=== PATIENT | male | born 1985 | race Caucasian/White ===

== ENCOUNTER 2018-02-14 19:46 | Inpatient (IN) ==
[2018-02-14] MEDS ORDERED: Sod Chloride 0.9% Inj 1,000 ML IV.SIG ONE (21:34)
[2018-02-14 21:55] LABS: Hematocrit 27.8 % (39.0-51.0); Mean Corpuscular HGB Conc 35.9 % (32.0-36.0); Mean Corpuscular Volume 108.6 fL (80.0-100.0); Mean Platelet Volume 8.1 fL (7.0-11.0); Platelet Count 134 th/mm3 (150-450); Red Blood Count 2.56 mil/mm3 (4.50-5.90); Red Cell Distribution Width 16.9 % (11.6-17.2); White Blood Count 12.6 th/mm3 (4.0-11.0)
--- NOTE | 2018-02-14 21:55 | ED ---
HPI General Chief Complaint: Abdominal Pain Stated Complaint: states pancreatis Time Seen by Provider: 02/14/18 21:33 Source: patient Mode of arrival: ambulatory Limitations: no limitations History of Present Illness HPI narrative: Patient is 32-year-old male presenting to the emerge department for evaluation of abdominal pain, nausea. Patient states that he was diagnosed with cirrhosis 3 years ago. He reports that he has been in and out of [facility] over the last 2-3 weeks. He states that he is no longer drinking alcohol but used to drink up to 6 beers a day. He states for the last 24 hours he has increased yellowing of his skin and eyes. He denies any fevers, chills, chest pain, shortness of breath. He states that when he does not have a bowel movement the fecal matter gets absorbed into his bloodstream. Patient reports numbness in his extremities. He states that he presented to [facility] because his gravity meter observer told him to get a second opinion here. He was followed by Dr. Winter GI at [facility]. MD complaint: Reports abdominal pain Onset (ago): month(s) Pain Consistency: constant Location: Reports diffuse Severity: moderate Severity scale (1-10): 7 Quality: Reports aching and fullness Migration to: Reports no migration Relieving factors: nothing Exacerbating factors: eating Context: Reports history of similar episodes Associated symptoms: Reports nausea and other Related Data Home Medications Medication Instructions Recorded Confirmed clonidine HCl 0.1 mg PO BID 02/14/18 02/14/18 magnesium 500 mg PO DAILY 02/14/18 02/14/18 phytonadione (vitamin K1) [vitamin 0 mg PO DAILY 02/14/18 02/14/18 K] Allergies Allergy/AdvReac Type Severity Reaction Status Date / Time No Known Allergies Allergy Verified 02/14/18 21:08 Review of Systems ROS: all other systems reviewed are negative [facility] Medical History Medical History Cirrhosis (Acute) Pancreatitis (Acute) Surgical History Surgical History History of esophagogastroduodenoscopy (EGD) (Acute) Family History Family History Father Healthy adult male Mother Healthy female adult Social History Social History Substance History: Past History Second Hand Smoke Exposure: No Smoking Status: Never smoker How Often Do You Have a Drink Containing Alcohol: Never Recent Travel in [facility] within the Last 8 Weeks: No Recent Out of Country Travel within the Last 8 Weeks: No Immunization History Tetanus Immunization: Unsure Exam Narrative Exam Narrative: GENERAL: Thin, well-developed, well-nourished, alert male. Presenting in no acute distress. SKIN: Focused skin assessment warm/dry. Jaundiced HEAD: Atraumatic. Normocephalic. EYES: Pupils equal and round. No injection or drainage. Positive scleral icterus ENT: No nasal bleeding or discharge. Mucous membranes pink and moist. NECK: Trachea midline. No JVD. CARDIOVASCULAR: Regular rate and rhythm. No murmur appreciated. RESPIRATORY: No accessory muscle use. Clear to auscultation. Breath sounds equal bilaterally. GASTROINTESTINAL: Abdomen soft, non-tender, nondistended. Hepatic and splenic margins not palpable. MUSCULOSKELETAL: No obvious deformities. No clubbing. No cyanosis. No edema. NEUROLOGICAL: Awake and alert. No obvious cranial nerve deficits. Motor grossly within normal limits. Normal speech. PSYCHIATRIC: Appropriate mood and affect; insight and judgment normal. Course Initial Documented Vital Signs Temperature 98.2 F 02/14/18 21:08 Pulse Rate 70 02/14/18 21:08 Respiratory Rate 23 02/14/18 21:08 Blood Pressure 113/57 L 02/14/18 21:08 Pulse Oximetry 98 02/14/18 21:08 Last Documented Vital Signs Temperature 98.3 F 02/16/18 14:47 Pulse Rate 83 02/16/18 14:47 Respiratory Rate 12 02/16/18 14:47 Blood Pressure 127/59 L 02/16/18 14:47 Pulse Oximetry 96 02/16/18 14:47 Medical Decision Making KATHLEEN Attestation KATHLEEN supervised visit: Yes Attestation: I, Dr. Beck, have reviewed the advance practice practitioner's documentation and am in agreement, met with the patient face to face, made the diagnosis, and the medical decision making was done by me. *My assessment and Findings: This is a 32-year-old patient who has a history of alcoholic cirrhosis who presents with abdominal pain and swelling as well as difficulty breathing. On exam, he is yellow. His abdomen is bloated compatible with ascites. He has epigastric tenderness. He is cachectic and chronically ill-appearing. Please see Kristine Priyank, SKIN FORMER's note for a more detailed H&P, final diagnosis and disposition MDM Narrative Medical decision making narrative: Patient is a chronically ill 32-year-old male presenting to emerge department for evaluation of jaundice and abdominal pain and nausea. Patient's vital signs are stable. Medical records requested from [facility]. Labs and imaging ordered and pending. CBC with a white blood cell count 12.6, hemoglobin is improved when compared to medical records, previous hemoglobin was 8.4. Patient does have bandemia, this is also improved when compared to prior on 02/02. The value at that time was 17. Potassium is 5.3. Ammonia level is elevated. Lipase is elevated >1700. Pt will be admitted for IVF and pain control, discussed with Dr. Gonzalez who accepted admit. Pt aware of findings and plan of care. Medical Screen Exam Complete: Yes Emergency Medical Condition: Yes Differential Diagnosis Differential Diagnosis: Cholecystitis versus pancreatitis versus metabolic abnormality versus liver failure versus obstruction versus other Medical Records Medical records reviewed: Yes I reviewed the patient's medical records. Medical records reviewed from [facility]. On 01/[address] scan of the abdomen and pelvis was performed that shows chronic hepatocellular disease. Increased splenic venous collaterals and distal esophageal varices demonstrating satisfactory enhancement. Increased moderate diffuse nonspecific mesenteric edema with small to moderate amount of free intraperitoneal fluid of the abdomen and pelvis. This is greatest within the pelvis. Also shows new diffuse moderate nonspecific wall thickening throughout the colon which could be related to colitis or edema. Diffuse heterogeneous enhancement of the liver with prevents exclusion of hepatic masses, with this patient increased risk of hepatocellular carcinoma due to chronic hepatocellular disease. Gallbladder not distended at least 14.4 cm in length and 6.0 cm in transverse diameter with moderate diffuse nonspecific wall thickening for which clinical correlation to exclude cystitis no bowel obstruction or ileus. Normal appendix. Hemoglobin was 8.4. Patient was placed on CIWA protocol during his admissions. Lab Data Lab results reviewed: Yes I reviewed the patient's lab results. Result diagrams: 02/16/18 05:24 02/16/18 05:24 Lab Results 02/14/18 02/14/18 02/14/18 Range/Units 21:40 21:40 22:00 WBC 12.6 H (4.0-11.0) th/mm3 RBC 2.56 L (4.50-5.90) mil/mm3 Hgb 10.0 L (13.0-17.0) gm/dL Hct 27.8 L (39.0-51.0) % MCV 108.6 H (80.0-100.0) fL MCH 39.0 H (27.0-34.0) pg MCHC 35.9 (32.0-36.0) % RDW 16.9 (11.6-17.2) % Plt Count 134 L (150-450) th/mm3 MPV 8.1 (7.0-11.0) fL Prelim Diff (Auto) Manual diff required Neut % (Auto) (16.0-70.0) % Lymph % (Auto) (9.0-44.0) % [place] % (Auto) (0.0-8.0) % Eos % (Auto) (0.0-4.0) % Baso % (Auto) (0.0-2.0) % Neut # (Auto) (1.8-7.7) th/mm3 Lymph # (Auto) (1.0-4.8) th/mm3 [place] # (Auto) (0.0-0.9) th/mm3 Eos # (Auto) (0.0-0.4) th/mm3 Baso # (Auto) (0.0-0.2) th/mm3 WBC Differential Manual diff final Seg Neuts % (Manual) 67 (16-70) % Band Neuts % (Manual) 13 H (0-6) % Lymphocytes % (Manual) 8 L (9-44) % Monocytes % (Manual) 4 (0-8) % Eosinophils % (Manual) 1 (0-4) % Basophils % (Manual) 3 H (0-2) % Myelocytes % (Man) 4 H (0-0) % Abs Neuts (Manual) 10.6 H (1.8-7.7) th/mm3 Differential Comment . Platelet Estimate Low L (Normal) Platelet Morphology Normal (Normal) Basophilic Stippling (None) Saline Cells 1+ H (None) Acanthocytes (Spur) Occ H (None) Keratocytes Occ H (None) PT (9.8-11.6) sec INR Ratio APTT (24.3-30.1) sec Fibrinogen (227-377) mg/dL Sodium 134 L (136-145) meq/L Potassium 5.3 H (3.5-5.1) meq/L Chloride 103 (98-107) meq/L Carbon Dioxide 25.8 (21.0-32.0) meq/L Anion Gap 5 (5-15) meq/L BUN 12 (7-18) mg/dL Creatinine 0.96 (0.60-1.30) mg/dL Estimated GFR Greater than 89 (>89) mL/min Random Glucose 111 H (74-106) mg/dL Calcium 7.8 L (8.5-10.1) mg/dL Magnesium 2.0 (1.5-2.5) mg/dL Total Bilirubin 23.0 H (0.2-1.0) mg/dL AST 144 H (15-37) U/L ALT 60 (12-78) U/L Alkaline Phosphatase 162 H (45-117) U/L Ammonia 47 H (11-32) mcmol/L Total Creatine Kinase 71 (39-308) U/L Troponin I Less than 0.02 L (0.02-0.05) ng/mL Total Protein 7.0 (6.4-8.2) g/dL Albumin 1.8 L (3.4-5.0) g/dL Lipase 1764 H (73-393) U/L Vitamin B12 (193-986) pg/mL Folate (3.1-17.5) ng/mL Urine Color (Yellw/Straw) Urine Clarity (Clear) Urine pH (5.0-8.5) Ur Specific [place] (1.002-1.035) Urine Protein (Neg-Trace) mg/dL Urine Glucose (UA) (Negative) mg/dL Urine Ketones (Negative) mg/dL Urine Occult Blood (Negative) Urine Nitrate (Negative) Urine Bilirubin (Negative) Urine Ictotest (Negative) Urine Urobilinogen (Less than 2) mg/dL Ur Leukocyte Esterase (Negative) Urine RBC (0-3) /hpf Urine WBC (0-5) /hpf Hyaline Casts (0-3) /lpf Granular Casts (None) /lpf Urine Mucus (Occasional) /lpf Micro UA Comment Ur Microscopic Review Urine Culture Comments 02/15/18 02/15/18 02/15/18 Range/Units 02:15 09:07 21:20 WBC (4.0-11.0) th/mm3 RBC (4.50-5.90) mil/mm3 Hgb (13.0-17.0) gm/dL Hct (39.0-51.0) % MCV (80.0-100.0) fL MCH (27.0-34.0) pg MCHC (32.0-36.0) % RDW (11.6-17.2) % Plt Count (150-450) th/mm3 MPV (7.0-11.0) fL Prelim Diff (Auto) Neut % (Auto) (16.0-70.0) % Lymph % (Auto) (9.0-44.0) % [place] % (Auto) (0.0-8.0) % Eos % (Auto) (0.0-4.0) % Baso % (Auto) (0.0-2.0) % Neut # (Auto) (1.8-7.7) th/mm3 Lymph # (Auto) (1.0-4.8) th/mm3 [place] # (Auto) (0.0-0.9) th/mm3 Eos # (Auto) (0.0-0.4) th/mm3 Baso # (Auto) (0.0-0.2) th/mm3 WBC Differential Seg Neuts % (Manual) (16-70) % Band Neuts % (Manual) (0-6) % Lymphocytes % (Manual) (9-44) % Monocytes % (Manual) (0-8) % Eosinophils % (Manual) (0-4) % Basophils % (Manual) (0-2) % Myelocytes % (Man) (0-0) % Abs Neuts (Manual) (1.8-7.7) th/mm3 Differential Comment Platelet Estimate (Normal) Platelet Morphology (Normal) Basophilic Stippling (None) Bin Cells (None) Acanthocytes (Spur) (None) Keratocytes (None) PT 26.8 H 26.8 H (9.8-11.6) sec INR 2.7 2.7 Ratio APTT 43.6 H (24.3-30.1) sec Fibrinogen 144 L (227-377) mg/dL Sodium (136-145) meq/L Potassium (3.5-5.1) meq/L Chloride (98-107) meq/L Carbon Dioxide (21.0-32.0) meq/L Anion Gap (5-15) meq/L BUN (7-18) mg/dL Creatinine (0.60-1.30) mg/dL Estimated GFR (>89) mL/min Random Glucose (74-106) mg/dL Calcium (8.5-10.1) mg/dL Magnesium (1.5-2.5) mg/dL Total Bilirubin (0.2-1.0) mg/dL AST (15-37) U/L ALT (12-78) U/L Alkaline Phosphatase (45-117) U/L Ammonia (11-32) mcmol/L Total Creatine Kinase (39-308) U/L Troponin I (0.02-0.05) ng/mL Total Protein (6.4-8.2) g/dL Albumin (3.4-5.0) g/dL Lipase (73-393) U/L Vitamin B12 (193-986) pg/mL Folate (3.1-17.5) ng/mL Urine Color Lindsey (Yellw/Straw) Urine Clarity Hazy H (Clear) Urine pH 6.0 (5.0-8.5) Ur Specific [place] 1.031 (1.002-1.035) Urine Protein Negative (Neg-Trace) mg/dL Urine Glucose (UA) Negative (Negative) mg/dL Urine Ketones Negative (Negative) mg/dL Urine Occult Blood Negative (Negative) Urine Nitrate Negative (Negative) Urine Bilirubin Small H (Negative) Urine Ictotest Positive H (Negative) Urine Urobilinogen 4 or greater (Less than 2) mg/dL Ur Leukocyte Esterase Negative (Negative) Urine RBC 1 (0-3) /hpf Urine WBC 2 (0-5) /hpf Hyaline Casts 1 (0-3) /lpf Granular Casts 3 (None) /lpf Urine Mucus Few H (Occasional) /lpf Micro UA Comment Culture not ind Ur Microscopic Review Not Reportable Urine Culture Comments Culture not ind 02/15/18 02/16/18 02/16/18 Range/Units 21:20 05:24 05:24 WBC 12.6 H (4.0-11.0) th/mm3 RBC 2.30 L (4.50-5.90) mil/mm3 Hgb 9.1 L (13.0-17.0) gm/dL Hct 24.9 L (39.0-51.0) % MCV 108.3 H (80.0-100.0) fL MCH 39.6 H (27.0-34.0) pg MCHC 36.5 H (32.0-36.0) % RDW 16.5 (11.6-17.2) % Plt Count 145 L (150-450) th/mm3 MPV 7.9 (7.0-11.0) fL Prelim Diff (Auto) Slide review pending Neut % (Auto) 78.7 H (16.0-70.0) % Lymph % (Auto) 11.0 (9.0-44.0) % [place] % (Auto) 8.0 (0.0-8.0) % Eos % (Auto) 1.7 (0.0-4.0) % Baso % (Auto) 0.6 (0.0-2.0) % Neut # (Auto) 9.9 H (1.8-7.7) th/mm3 Lymph # (Auto) 1.4 (1.0-4.8) th/mm3 [place] # (Auto) 1.0 H (0.0-0.9) th/mm3 Eos # (Auto) 0.2 (0.0-0.4) th/mm3 Baso # (Auto) 0.1 (0.0-0.2) th/mm3 WBC Differential Manual diff final Seg Neuts % (Manual) 80 H (16-70) % Band Neuts % (Manual) 8 H (0-6) % Lymphocytes % (Manual) 4 L (9-44) % Monocytes % (Manual) 7 (0-8) % Eosinophils % (Manual) (0-4) % Basophils % (Manual) 1 (0-2) % Myelocytes % (Man) (0-0) % Abs Neuts (Manual) 11.1 H (1.8-7.7) th/mm3 Differential Comment . Platelet Estimate Low L (Normal) Platelet Morphology Normal (Normal) Basophilic Stippling Faint H (None) Bin Cells 1+ H (None) Acanthocytes (Spur) Occ H (None) Keratocytes Occ H (None) PT (9.8-11.6) sec INR Ratio APTT (24.3-30.1) sec Fibrinogen (227-377) mg/dL Sodium 135 L (136-145) meq/L Potassium 4.3 D (3.5-5.1) meq/L Chloride 103 (98-107) meq/L Carbon Dioxide 24.1 (21.0-32.0) meq/L Anion Gap 8 (5-15) meq/L BUN 14 (7-18) mg/dL Creatinine 0.92 (0.60-1.30) mg/dL Estimated GFR Greater than 89 (>89) mL/min Random Glucose 74 (74-106) mg/dL Calcium 7.8 L (8.5-10.1) mg/dL Magnesium (1.5-2.5) mg/dL Total Bilirubin 21.5 H (0.2-1.0) mg/dL AST 110 H (15-37) U/L ALT 49 (12-78) U/L Alkaline Phosphatase 139 H (45-117) U/L Ammonia (11-32) mcmol/L Total Creatine Kinase (39-308) U/L Troponin I (0.02-0.05) ng/mL Total Protein 6.2 L D (6.4-8.2) g/dL Albumin 1.7 L (3.4-5.0) g/dL Lipase (73-393) U/L Vitamin B12 1871 H (193-986) pg/mL Folate 7.0 (3.1-17.5) ng/mL Urine Color (Yellw/Straw) Urine Clarity (Clear) Urine pH (5.0-8.5) Ur Specific [place] (1.002-1.035) Urine Protein (Neg-Trace) mg/dL Urine Glucose (UA) (Negative) mg/dL Urine Ketones (Negative) mg/dL Urine Occult Blood (Negative) Urine Nitrate (Negative) Urine Bilirubin (Negative) Urine Ictotest (Negative) Urine Urobilinogen (Less than 2) mg/dL Ur Leukocyte Esterase (Negative) Urine RBC (0-3) /hpf Urine WBC (0-5) /hpf Hyaline Casts (0-3) /lpf Granular Casts (None) /lpf Urine Mucus (Occasional) /lpf Micro UA Comment Ur Microscopic Review Urine Culture Comments 02/16/18 02/16/18 02/16/18 Range/Units 05:24 10:21 13:16 WBC (4.0-11.0) th/mm3 RBC (4.50-5.90) mil/mm3 Hgb (13.0-17.0) gm/dL Hct (39.0-51.0) % MCV (80.0-100.0) fL MCH (27.0-34.0) pg MCHC (32.0-36.0) % RDW (11.6-17.2) % Plt Count (150-450) th/mm3 MPV (7.0-11.0) fL Prelim Diff (Auto) Neut % (Auto) (16.0-70.0) % Lymph % (Auto) (9.0-44.0) % [place] % (Auto) (0.0-8.0) % Eos % (Auto) (0.0-4.0) % Baso % (Auto) (0.0-2.0) % Neut # (Auto) (1.8-7.7) th/mm3 Lymph # (Auto) (1.0-4.8) th/mm3 [place] # (Auto) (0.0-0.9) th/mm3 Eos # (Auto) (0.0-0.4) th/mm3 Baso # (Auto) (0.0-0.2) th/mm3 WBC Differential Seg Neuts % (Manual) (16-70) % Band Neuts % (Manual) (0-6) % Lymphocytes % (Manual) (9-44) % Monocytes % (Manual) (0-8) % Eosinophils % (Manual) (0-4) % Basophils % (Manual) (0-2) % Myelocytes % (Man) (0-0) % Abs Neuts (Manual) (1.8-7.7) th/mm3 Differential Comment Platelet Estimate (Normal) Platelet Morphology (Normal) Basophilic Stippling (None) Bin Cells (None) Acanthocytes (Spur) (None) Keratocytes (None) PT 24.2 H (9.8-11.6) sec INR 2.4 Ratio APTT 40.0 H (24.3-30.1) sec Fibrinogen (227-377) mg/dL Sodium (136-145) meq/L Potassium (3.5-5.1) meq/L Chloride (98-107) meq/L Carbon Dioxide (21.0-32.0) meq/L Anion Gap (5-15) meq/L BUN (7-18) mg/dL Creatinine (0.60-1.30) mg/dL Estimated GFR (>89) mL/min Random Glucose (74-106) mg/dL Calcium (8.5-10.1) mg/dL Magnesium (1.5-2.5) mg/dL Total Bilirubin (0.2-1.0) mg/dL AST (15-37) U/L ALT (12-78) U/L Alkaline Phosphatase (45-117) U/L Ammonia (11-32) mcmol/L Total Creatine Kinase (39-308) U/L Troponin I (0.02-0.05) ng/mL Total Protein (6.4-8.2) g/dL Albumin (3.4-5.0) g/dL Lipase 785 H (73-393) U/L Vitamin B12 (193-986) pg/mL Folate (3.1-17.5) ng/mL Urine Color (Yellw/Straw) Urine Clarity (Clear) Urine pH (5.0-8.5) Ur Specific [place] (1.002-1.035) Urine Protein (Neg-Trace) mg/dL Urine Glucose (UA) (Negative) mg/dL Urine Ketones (Negative) mg/dL Urine Occult Blood (Negative) Urine Nitrate (Negative) Urine Bilirubin (Negative) Urine Ictotest (Negative) Urine Urobilinogen (Less than 2) mg/dL Ur Leukocyte Esterase (Negative) Urine RBC (0-3) /hpf Urine WBC (0-5) /hpf Hyaline Casts (0-3) /lpf Granular Casts (None) /lpf Urine Mucus (Occasional) /lpf Micro UA Comment Ur Microscopic Review Urine Culture Comments Imaging Data Radiologist's impression: Abdomen/Pelvis CT 02/14/18 21:47 CONCLUSION: 1. CT findings of the liver consistent with nonspecific hepatocellular disease. No perceptible donato cirrhotic changes. 2. Possible recanalized portal vein. No acute portal vein thrombosis. 3. Portosystemic collaterals, massive splenomegaly and small to moderate ascites. 4. No focal hepatic or splenic lesion seen. ECG Data EKG Prior to Arrival: No Attestation: I personally reviewed and interpreted this ECG as follows: (EKG shows a sinus rhythm with a rate of 59. No STT wave changes.) Discharge Plan Discharge Disposition Patient Disposition: 30 Still Patient Discharge Condition Condition: Stable Discharge Details Diagnosis: Pancreatitis, Jaundice due to hepatitis, Cirrhosis of liver Physicians Team ED Provider: Sonam Beck ED Midlevel Provider: Kristine Hassan Primary Care Provider: Primary Care Kathi Bedoya Attending Provider: Do Fields Other Providers: Meme Edwards ; Lj Peña Status ED Status: Left Department Discharge Information Discharge Date/Time: 02/15/18 01:28
[2018-02-14 22:24] LABS: Eosinophils 1 % (0-4); Lymphocytes 8 % (9-44); Monocytes 4 % (0-8); Myelocytes 4 % (0-0)
[2018-02-14 22:25] LABS: Acanthocytes Occ; Burr Cells 1+; Platelet Morphology Normal (Normal)
[2018-02-14 22:32] LABS: Alanine Aminotransferase 60 U/L (12-78); Albumin 1.8 g/dL (3.4-5.0); Alkaline Phosphatase 162 U/L (45-117); Anion Gap 5 meq/L (5-15); Aspartate Aminotransferase 144 U/L (15-37); Blood Urea Nitrogen 12 mg/dL (7-18); Calcium 7.8 mg/dL (8.5-10.1); Carbon Dioxide 25.8 meq/L (21.0-32.0); Chloride 103 meq/L (98-107); Glomerular Filtration Rate Greater Than 89 mL/min (>89); Glucose,Random 111 mg/dL (74-106); Lipase 1764 U/L (73-393); Potassium 5.3 meq/L (3.5-5.1)
[2018-02-14 22:36] LABS: Sodium 134 meq/L (136-145)
[2018-02-14 22:37] LABS: Creatine Kinase 71 U/L (39-308)
[2018-02-14] MEDS ORDERED: Sod Chloride 0.9% Inj 1,000 ML IV.SIG SCH (23:30)
--- NOTE | 2018-02-14 23:52 | CT ---
EXAM DATE: 02/14/2018 11:37 PM EDT AGE/SEX: 32 years / Male INDICATIONS: Abdominal distention. Epigastric pain. Jaundice. CLINICAL DATA: This is the patient's initial encounter. Patient reports that signs and symptoms have been present for 4 - 6 days and indicates a pain score of 6/10. MEDICAL/SURGICAL HISTORY: Cirrhosis. Pancreatitis. None. ORAL CONTRAST: No oral contrast ingested. RADIATION DOSE: 9.32 CTDI (mGy) COMPARISON: No prior exams available for comparison. TECHNIQUE: Multiple contiguous axial images were obtained through the abdomen and pelvis following b olus infusion of 100 ml Omnipaque 350 (iohexol) nonionic water-soluble contrast as a single exam do se. No oral contrast ingested. Using automated exposure control and adjustment of the mA and/or kV a ccording to patient size, radiation dose was kept as low as reasonably achievable to obtain optimal d iagnostic quality images. DICOM format image data is available electronically for review and compari son. FINDINGS: Liver is 22.5 cm craniocaudal and has mildly heterogeneous enhancement. No focal hepatic lesion is de monstrated. There are portosystemic collaterals including esophageal varices. Spleen is enlarged at 2 3 cm craniocaudal. No focal splenic lesion. Portal vein is patent but I believe it may be recanalized there is small to moderate ascites. Pancreas, adrenal glands and kidneys are within normal limits. No acute abnormalities are seen of the gastrointestinal tract. Very mild bibasilar atelectasis. No acute bony abnormality. CONCLUSION: 1. CT findings of the liver consistent with nonspecific hepatocellular disease. No perceptible donato cirrhotic changes. 2. Possible recanalized portal vein. No acute portal vein thrombosis. 3. Portosystemic collaterals, massive splenomegaly and small to moderate ascites. 4. No focal hepatic or splenic lesion seen. Electronically signed by: Philippe Coffman MD 02/14/2018 11:51 PM EDT
[2018-02-15] MEDS ORDERED: Morphine Inj 4 MG/ML Vial IV.PUSH ONE (00:14)
[2018-02-15] MEDS ORDERED: Bisacodyl 10 MG Supp RECTAL PRN (00:19)
[2018-02-15] MEDS: Sod Chloride 0.9% Inj 1,000 ML IV.CONT SCH ×6 (00:52→23:21)
[2018-02-15 02:37] LABS: Bilirubin,Urine Small (Negative); Clarity,Urine Hazy (Clear); Color,Urine Amber (Yellw/Straw); Glucose,Urine (UA) Negative (Negative); Hyaline Casts,Urine 1 /lpf (0-3); Ictotest,Urine Positive (Negative); Leukocyte Esterase,Urine Negative (Negative); Mucus,Urine Few /lpf (Occasional); Nitrite,Urine Negative (Negative); Specific Gravity,Urine 1.031 (1.002-1.035); Urobilinogen,Urine 4 or Greater mg/dL (Less than 2)
[2018-02-15] MEDS: Morphine Inj 4 MG/ML Vial IV.PUSH PRN ×3 (05:34→19:47)
--- NOTE | 2018-02-15 05:56 | P.HPIM ---
History of Present Illness Primary Care Physician: No Primary Care Physician History of Present Illness: 32-year-old male with a 3-year history of alcoholic cirrhosis, subsequent diagnosis of esophageal varices status post banding, recent inpatient treatment for pancreatitis at [facility], discharged 2 days ago. He presents with a 1 day history of progressively worsening constant sharp epigastric pain radiating to back, nausea with bilious vomiting. He denies any fevers, however says he frequently feels chilled. He also reports worsening swelling in his abdomen. He says he was going to go back to [facility], however wanted to come here to see if we can give him a second opinion. Patient says he quit drinking about a month ago Inpatient Certification: I certify that the inpatient services were ordered in accordance with Medicare regulations governing the order. This includes certification that hospital inpatient services are reasonable and necessary and in the case of services not specified as inpatient-only under 42 CFR 419.22(n), that they are appropriately provided as inpatient services in accordance to with the 2-midnight benchmark under 43 CFR 412.3(e) Estimated Total Length of Stay (Days): 2 Plans for Post Hospital Care: Home Review of Systems All other systems reviewed negative except as stated in HPI PMFSH - History History Provided By: Patient - Medical / Surgical Hx Neg / Unobtainable Surgical History: No Previous Surgery - Medical History Medical History: Medical History (Last Reviewed 02/14/18 @ 23:15 by JAMES Vallecillo) Cirrhosis Pancreatitis - Surgical History Surgical History: Surgical History (Last Updated 02/15/18 @ 06:00 by Asif Gonzalez MD) History of esophagogastroduodenoscopy (EGD) - Family History Family History: Family History (Last Updated 02/15/18 @ 05:59 by Asif Gonzalez MD) Father Healthy adult male Mother Healthy female adult - Social History I have reviewed the patient's Social History: Yes - Tobacco History Second Hand Smoke Exposure: No Smoking Status: Never smoker - Alcohol History How Often Do You Have a Drink Containing Alcohol: Never - Substance Use History Substance History: Past History - Travel History Recent Travel in the [place] Within the Last 8 Weeks: No Recent Travel Out of the Country Within the Last 8 Weeks: No - Immunization History Tetanus Immunization: Unsure Medications and Allergies Active Medications: Active Medications Al Hydroxide/Mg Hydroxide (Milk Of Magnesia Liq) 30 ml PO Q12H PRN PRN Reason: Mild Constipation Bisacodyl (Dulcolax Supp) 10 mg RECTAL DAILY PRN PRN Reason: SEVERE CONSITIPATION Sodium Chloride (Ns Inj) 1,000 mls @ 0 mls/hr IV.SIG BOLUS GEOFF Sodium Chloride (Ns Inj) 1,000 mls @ 150 mls/hr IV.CONT .Q6H40M GEOFF Last Admin: 02/15/18 00:52 Dose: 150 mls/hr Lactulose (Lactulose Liq) 30 ml PO DAILY PRN PRN Reason: SEVERE CONSITIPATION Morphine Sulfate (Morphine Inj) 2 mg IV.PUSH Q3H PRN PRN Reason: pain 1 to 10 Last Admin: 02/15/18 05:34 Dose: 2 mg Sennosides (Senokot) 17.2 mg PO Q12H PRN PRN Reason: Moderate Constipation Sodium Chloride (Ns Flush) 2 ml IV.FLUSH PRN PRN PRN Reason: FLUSH AFTER USING IV ACCESS Allergies Allergy/AdvReac Type Severity Reaction Status Date / Time No Known Allergies Allergy Verified 02/14/18 21:08 Home Medications Medication Instructions Recorded Confirmed Type clonidine HCl 0.1 mg PO BID 02/14/18 02/14/18 History magnesium 500 mg PO DAILY 02/14/18 02/14/18 History phytonadione (vitamin K1) [vitamin 0 mg PO DAILY 02/14/18 02/14/18 History K] Exam Vital signs: Vital Signs 02/14/18 21:08 02/14/18 21:23 02/14/18 23:12 Temperature 98.2 F 98 F Pulse Rate 70 64 86 Respiratory Rate 23 18 Blood Pressure 113/57 L 129/65 Pulse Oximetry 98 99 98 02/15/18 01:10 Temperature Pulse Rate Respiratory Rate 18 Blood Pressure Pulse Oximetry Intake & Output 02/14/18 02/14/18 02/15/18 06:59 18:59 06:59 Intake Total 1000 / 1000 Balance 1000 / 1000 Weight 68.492 kg Intake: IV 1000 / 1000 NS Inj 1,000 ML @ Wide Open IV. 1000 / 1000 SIG BOLUS ONE Rx#:[id number] Other: Date of Last Bowel Movement 02/14/18 Weight On Admission 68.492 kg Narrative: GENERAL: Patient sitting up in bed. Appears comfortable actually. Alert and oriented x3. SKIN: Warm and dry. HEAD: Atraumatic. Normocephalic. EYES: Pupils equal and round. Positive scleral icterus. No injection or drainage. ENT: No nasal bleeding or discharge. Mucous membranes pink and moist. NECK: Trachea midline. No JVD. CARDIOVASCULAR: Regular rate and rhythm. RESPIRATORY: No accessory muscle use. Clear to auscultation. Breath sounds equal bilaterally. GASTROINTESTINAL: Abdomen distended.. Tender to moderate palpation in the epigastrium. Hepatic and splenic margins not palpable. MUSCULOSKELETAL: Extremities without clubbing, cyanosis, or edema. No obvious deformities. NEUROLOGICAL: Awake and alert. No obvious cranial nerve deficits. Motor grossly within normal limits. Five out of 5 muscle strength in the arms and legs. Normal speech. PSYCHIATRIC: Appropriate mood and affect; insight and judgment normal. Results - Labs CBC & Chem 7: 02/14/18 21:40 02/14/18 21:40 Labs: Short CBC 02/14/18 Range/Units 21:40 WBC 12.6 H (4.0-11.0) th/mm3 Hgb 10.0 L (13.0-17.0) gm/dL Hct 27.8 L (39.0-51.0) % Plt Count 134 L (150-450) th/mm3 BMP 02/14/18 21:40 Sodium 134 L Potassium 5.3 H Chloride 103 Carbon Dioxide 25.8 BUN 12 Creatinine 0.96 Calcium 7.8 L Cardiac Enzymes 02/14/18 Range/Units 21:40 Total Creatine Kinase 71 (39-308) U/L Troponin I Less than 0.02 L (0.02-0.05) ng/mL Liver Function 02/14/18 Range/Units 21:40 Total Bilirubin 23.0 H (0.2-1.0) mg/dL AST 144 H (15-37) U/L ALT 60 (12-78) U/L Alkaline Phosphatase 162 H (45-117) U/L Albumin 1.8 L (3.4-5.0) g/dL Urine 02/15/18 Range/Units 02:15 Urine Color Lindsey (Yellw/Straw) Urine Clarity Hazy H (Clear) Urine pH 6.0 (5.0-8.5) Ur Specific [place] 1.031 (1.002-1.035) Urine Protein Negative (Neg-Trace) mg/dL Urine Glucose (UA) Negative (Negative) mg/dL - Imaging Impressions Abdomen/Pelvis CT 02/14/18 21:47 CONCLUSION: 1. CT findings of the liver consistent with nonspecific hepatocellular disease. No perceptible donato cirrhotic changes. 2. Possible recanalized portal vein. No acute portal vein thrombosis. 3. Portosystemic collaterals, massive splenomegaly and small to moderate ascites. 4. No focal hepatic or splenic lesion seen. Caprini VTE Risk Assessment Caprini VTE Risk Assessment: No/Low Risk (score <= 1) Caprini Risk Assessment Model: Point Value = 1 Point Value = 2 Point Value = 3 Point Value = 5 Age 41-60 Minor surgery BMI > 25 kg/m2 Swollen legs Varicose veins or History of unexplained or recurrent spontaneous Oral contraceptives or hormone replacement Sepsis (< 1 month) Serious lung disease, including pneumonia (< 1 month) Abnormal pulmonary function Acute myocardial infarction Congestive heart failure (< 1 month) History of inflammatory bowel disease Medical patient at bed rest Age 61-74 Arthroscopic surgery Major open surgery (> 45 min) Laparoscopic surgery (> 45 min) Malignancy Confined to bed (> 72 hours) Immobilizing plaster cast Central venous access Age >= 75 History of VTE Family history of VTE Factor V Leiden Prothrombin [id number] Lupus anticoagulant Anticardiolipin antibodies Elevated serum homocysteine Heparin-induced thrombocytopenia Other congenital or acquired thrombophilia Stroke (< 1 month) Elective arthroplasty Hip, pelvis, or leg fracture Acute spinal cord injury (< 1 month) Prophylaxis Regimen: Total Risk Factor Score Risk Level Prophylaxis Regimen 0-1 Low Early ambulation 2 Moderate Order ONE of the following: *Sequential Compression Device (SCD) *Heparin 5000 units SQ BID 3-4 Higher Order ONE of the following medications: *Heparin 5000 units SQ TID *Enoxaparin/Lovenox 40 mg SQ daily (WT < 150 kg, CrCl > 30 mL/min) *Enoxaparin/Lovenox 30 mg SQ daily (WT < 150 kg, CrCl > 10-29 mL/min) *Enoxaparin/Lovenox 30 mg SQ BID (WT < 150 kg, CrCl > 30 mL/min) AND/OR *Sequential Compression Device (SCD) 5 or more Highest Order ONE of the following medications: *Heparin 5000 units SQ TID (Preferred with Epidurals) *Enoxaparin/Lovenox 40 mg SQ daily (WT < 150 kg, CrCl > 30 mL/min) *Enoxaparin/Lovenox 30 mg SQ daily (WT < 150 kg, CrCl > 10-29 mL/min) *Enoxaparin/Lovenox 30 mg SQ BID (WT < 150 kg, CrCl > 30 mL/min) AND *Sequential Compression Device (SCD) Assessment and Plan - Plan //Acute pancreatitis Lipase 1700. CT abdomen with no acute findings regarding pancreas. Will place on IV fluids. N.p.o. //Hyperkalemia. Potassium 5.2. Expect improved with IV fluids. //Leukocytosis. 12.6. Band neutrophils 13, however no signs of acute infection. Likely secondary to acute pancreatitis. Monitor. //Alcoholic hepatitis. //Hyperbilirubinemia 23 on admission //Ascites. //Esophageal varices //Hyperammonemia -No need for steroids as patient has not had alcohol in over a month. CT abdomen showing hepatitis, mild to moderate ascites. Patient reports previously not enough fluid at outside hospital for paracentesis. Patient reports never having paracentesis. Will order paracentesis = Gastroenterology to be consulted. Appreciate assistance. Start on zinc, lactulose. Discussed Condition With: Patient, nurse, ED physician. H&P: Quality - VTE Deep Vein Thrombosis/Pulmonary Embolism Present on Admission: No
[2018-02-15] MEDS ORDERED: Promethazine 25 MG Supp RECTAL PRN (06:06)
[2018-02-15] MEDS ORDERED: Furosemide 20 MG Tablet PO SCH (09:00)
[2018-02-15 09:29] LABS: INR 2.7 Ratio; Prothrombin Time 26.8 sec (9.8-11.6)
[2018-02-15] MEDS: Phytonadione 5 MG/SWFI 5 ML Oral Syringe PO SCH (09:44)
[2018-02-15] MEDS: Magnesium Oxide 400 MG Tablet PO SCH (09:44)
--- NOTE | 2018-02-15 14:48 | ECG ---
Date Performed: 02/14/2018 Time Performed: 22:03:37 PTAGE: 32 years EKG: SINUS BRADYCARDIA BORDERLINE ECG NO PREVIOUS TRACING DOCTOR: Graeme Mendoza Interpretating Date/Time 02/15/2018 14:46:53
[2018-02-15 21:43] LABS: Activated Partial Thrombo Time 43.6 sec (24.3-30.1); INR 2.7 Ratio; Prothrombin Time 26.8 sec (9.8-11.6)
[2018-02-16] MEDS: Morphine Inj 4 MG/ML Vial IV.PUSH PRN ×5 (02:18→20:50)
[2018-02-16] MEDS: Sod Chloride 0.9% Inj 1,000 ML IV.CONT SCH ×4 (06:08→22:08)
[2018-02-16 06:11] LABS: INR 2.4 Ratio; Prothrombin Time 24.2 sec (9.8-11.6)
[2018-02-16 06:14] LABS: Baso # (Auto) 0.1 th/mm3 (0.0-0.2); Baso % (Auto) 0.6 % (0.0-2.0); Eos # (Auto) 0.2 th/mm3 (0.0-0.4); Eos % (Auto) 1.7 % (0.0-4.0); Hematocrit 24.9 % (39.0-51.0); Hemoglobin 9.1 gm/dL (13.0-17.0); Lymph # (Auto) 1.4 th/mm3 (1.0-4.8); Mean Corpuscular Hemoglobin 39.6 pg (27.0-34.0); Mean Corpuscular Volume 108.3 fL (80.0-100.0); Mean Platelet Volume 7.9 fL (7.0-11.0); Neut # (Auto) 9.9 th/mm3 (1.8-7.7); Neut % (Auto) 78.7 % (16.0-70.0); Platelet Count 145 th/mm3 (150-450); Red Cell Distribution Width 16.5 % (11.6-17.2); White Blood Count 12.6 th/mm3 (4.0-11.0)
[2018-02-16 06:32] LABS: Alanine Aminotransferase 49 U/L (12-78)
[2018-02-16 06:35] LABS: Albumin 1.7 g/dL (3.4-5.0); Anion Gap 8 meq/L (5-15); Aspartate Aminotransferase 110 U/L (15-37); Blood Urea Nitrogen 14 mg/dL (7-18); Calcium 7.8 mg/dL (8.5-10.1); Carbon Dioxide 24.1 meq/L (21.0-32.0); Chloride 103 meq/L (98-107); Glomerular Filtration Rate Greater Than 89 mL/min (>89); Glucose,Random 74 mg/dL (74-106); Potassium 4.3 meq/L (3.5-5.1); Sodium 135 meq/L (136-145)
[2018-02-16 06:36] LABS: Alkaline Phosphatase 139 U/L (45-117); Total Protein 6.2 g/dL (6.4-8.2)
[2018-02-16 06:58] LABS: Mean Corpuscular HGB Conc 36.5 % (32.0-36.0)
[2018-02-16 07:00] LABS: Lymphocytes 4 % (9-44); Monocytes 7 % (0-8)
[2018-02-16 07:01] LABS: Burr Cells 1+
[2018-02-16 07:02] LABS: Acanthocytes Occ; Platelet Morphology Normal (Normal)
[2018-02-16] MEDS: Phytonadione 5 MG/SWFI 5 ML Oral Syringe PO SCH (08:17)
[2018-02-16] MEDS: Magnesium Oxide 400 MG Tablet PO SCH (08:17)
--- NOTE | 2018-02-16 08:52 | P.PN ---
Subjective Interval history: Lipase improved significantly. Patient with less abdominal pain. Says he is no nauseated. Like to try diet. Advance diet to clear liquid diet today. Patient denies having any fever or chills. No shortness of breath he is saturating well on room air. Physical Exam Vital signs: Vital Signs 02/15/18 11:51 02/15/18 16:00 02/15/18 20:00 Temperature 98.4 F 98.0 F Pulse Rate 82 81 85 Respiratory Rate 16 16 21 Blood Pressure 115/55 L 116/56 L 120/58 L Pulse Oximetry 96 97 97 02/15/18 23:49 02/16/18 04:00 02/16/18 07:57 Temperature 98.0 F 98.1 F 98.0 F Pulse Rate 78 81 81 Respiratory Rate 19 18 16 Blood Pressure 119/58 L 122/80 123/60 Pulse Oximetry 97 100 97 Intake & Output 02/15/18 02/16/18 02/16/18 18:59 06:59 18:59 Intake Total 1999 3180 / 3180 Output Total 780 / 780 Balance 1999 2400 / 2400 Intake: IV 1999 1000 / 1000 NS Inj 1,000 ML @ 125 mls/hr IV 1999 1000 / 1000 .CONT .Q8H GEOFF Rx#:[id number] Other 2180 / 2180 Output: Urine 780 / 780 Other: Other Intake Source Saline Solution # Voids 2 Date of Last Bowel Movement 02/15/18 02/15/18 Narrative: GENERAL: Patient is a 32 yo male, cachectic, ap[pears in nad. CARDIOVASCULAR: Regular rate and rhythm. RESPIRATORY: No accessory muscle use. Clear to auscultation. Breath sounds equal bilaterally. GASTROINTESTINAL: Abdomen distended.. Tender to moderate palpation in the epigastrium. Hepatic and splenic margins not palpable. MUSCULOSKELETAL: Extremities without clubbing, cyanosis, or edema. No obvious deformities. NEUROLOGICAL: Awake and alert. No obvious cranial nerve deficits. Motor grossly within normal limits. Five out of 5 muscle strength in the arms and legs. Normal speech. PSYCHIATRIC: Appropriate mood and affect; insight and judgment normal. Results - Labs CBC & Chem 7: 02/16/18 05:24 02/16/18 05:24 Laboratory Results - last 24 hr 02/15/18 02/15/18 02/15/18 09:07 21:20 21:20 WBC RBC Hgb Hct MCV MCH MCHC RDW Plt Count MPV Prelim Diff (Auto) Neut % (Auto) Lymph % (Auto) Orange % (Auto) Eos % (Auto) Baso % (Auto) Neut # (Auto) Lymph # (Auto) Orange # (Auto) Eos # (Auto) Baso # (Auto) WBC Differential Seg Neuts % (Manual) Band Neuts % (Manual) Lymphocytes % (Manual) Monocytes % (Manual) Basophils % (Manual) Abs Neuts (Manual) Differential Comment Platelet Estimate Platelet Morphology Basophilic Stippling [place] Cells Acanthocytes (Spur) Keratocytes PT 26.8 H 26.8 H INR 2.7 2.7 APTT 43.6 H Fibrinogen 144 L Sodium Potassium Chloride Carbon Dioxide Anion Gap BUN Creatinine Estimated GFR Random Glucose Calcium Total Bilirubin AST ALT Alkaline Phosphatase Total Protein Albumin Vitamin B12 1871 H Folate 7.0 02/16/18 02/16/18 02/16/18 05:24 05:24 05:24 WBC 12.6 H RBC 2.30 L Hgb 9.1 L Hct 24.9 L MCV 108.3 H MCH 39.6 H MCHC 36.5 H RDW 16.5 Plt Count 145 L MPV 7.9 Prelim Diff (Auto) Slide review pending Neut % (Auto) 78.7 H Lymph % (Auto) 11.0 Orange % (Auto) 8.0 Eos % (Auto) 1.7 Baso % (Auto) 0.6 Neut # (Auto) 9.9 H Lymph # (Auto) 1.4 Orange # (Auto) 1.0 H Eos # (Auto) 0.2 Baso # (Auto) 0.1 WBC Differential Manual diff final Seg Neuts % (Manual) 80 H Band Neuts % (Manual) 8 H Lymphocytes % (Manual) 4 L Monocytes % (Manual) 7 Basophils % (Manual) 1 Abs Neuts (Manual) 11.1 H Differential Comment . Platelet Estimate Low L Platelet Morphology Normal Basophilic Stippling Faint H Bin Cells 1+ H Acanthocytes (Spur) Occ H Keratocytes Occ H PT 24.2 H INR 2.4 APTT Fibrinogen Sodium 135 L Potassium 4.3 D Chloride 103 Carbon Dioxide 24.1 Anion Gap 8 BUN 14 Creatinine 0.92 Estimated GFR Greater than 89 Random Glucose 74 Calcium 7.8 L Total Bilirubin 21.5 H AST 110 H ALT 49 Alkaline Phosphatase 139 H Total Protein 6.2 L D Albumin 1.7 L Vitamin B12 Folate Assessment and Plan - Plan Acute pancreatitis Lipase 1700 on admission, repeat trending down CT abdomen with no acute findings regarding pancreas. DC IV fluids as patient with worsenign ascites and LE edema. Advance diet to cld Lasix 40 mg daily PT/INR daily Spironolactone 50 mg daily may need to increase dose Lactulose 30 mg daily Xifaxan 550 mg every 12hr Agree with paracentesis when INR is stable Monitor labs, supportive care, prognosis guarded to poor, consider transplant evaluation in the future Hyperkalemia. Potassium 5.2 on admission . Resolved, monitor Leukocytosis. 12.6. Band neutrophils 13, however no signs of acute infection. On admission. Likely secondary to acute pancreatitis. Monitor. Alcoholic hepatitis. Hyperbilirubinemia 23 on admission Ascites. Esophageal varices Hyperammonemia -No need for steroids as patient has not had alcohol in over a month. CT abdomen showing hepatitis, mild to moderate ascites. Patient reports previously not enough fluid at outside hospital for paracentesis. Patient reports never having paracentesis. Difficult paracentesis as elevated INR = Gastroenterology consulted and ff. Appreciate assistance. Start on zinc, lactulose. Discussed Condition With: Patient, nurse DC when improves, able to elise food and low lipase, and when cleared by GI. Plan for paracentesis when INR improves, might need FFP
--- NOTE | 2018-02-16 09:25 | MB ---
cc: Meme Edwards MD DATE: 02/15/2018 CHIEF COMPLAINT: 1. Coagulopathy. 2. Alcoholic cirrhosis. HISTORY OF PRESENT ILLNESS: Mr. Aquino is a 32-year-old gentleman with a history of alcoholic cirrhosis complicated by esophageal varices that required banding, pancreatitis with recent admission at [facility], and recent discharge. He presents to our hospital with constant, sharp epigastric pain that radiates to the back and nausea with bilious vomiting. Laboratory studies with white blood cell count 12.6, hemoglobin 10, platelet count of 134,000 with a normal differential. Coag studies with PT of 26.8, INR is 2.7, PTT [place] 46.3[place] [address], folate is 7. Fibrinogen is 144. CT scan of the abdomen and pelvis with nonspecific hepatocellular disease, possible recanalization of the portal vein. No acute portal vein thrombosis, portosystemic collaterals, massive splenomegaly, and small to moderate ascites. Liver function tests with AST of 110, ALT 49, total bilirubin is 21.5. Past medical history 1. History of alcohol abuse, quit approximately 1 month ago 2. Liver cirrhosis Social history Former alcohol abuse. Family history: No known family history of cirrhosis ROS as above in HPI all others negative. Physical exam General: thin, chronically ill appearing man in no distress Head: normocephalic, atraumatic Eyes: scleral icterus OP: clear CV: RRR no murmurs Respiratory: no distress, CTA bilaterally Abdomen: distended, nontender Ext: edema Neuro:grossly nonfocal ASSESSMENT AND PLAN: 1. Coagulopathy did not improve with vitamin K, likely secondary to liver cirrhosis, given the fact that our coagulation factors are made in the liver. He is currently having no bleeding. We will obtain mixing study. 2. Liver cirrhosis with elevated bilirubin. We will consult gastroenterology team. MD SHANNON Sorto/nikia , 06:57 AM , 07:01 AM JOY
--- NOTE | 2018-02-16 11:06 | P.CONGI ---
History of Present Illness Consult date: 02/16/18 Consult reason: Epigastric abdominal pain history of cirrhosis Chief complaint: Pancreatitis, Cirrhosis, Jaundice History of Present Illness: This is a 32-year-old male who was admitted to the hospital here at [place] on 02/14/2018 with sharp epigastric abdominal pain progressively worsening since his recent hospital stay at [facility]. According to the record and patient he was discharged 2 days before this admission, and was not given any new medications except what he was on before and no pain meds. Patient states that he does not drink any alcohol in the past 3-4 months and does not smoke does not do drugs and does not drink coffee. Patient notes his diagnosis of cirrhosis was 3-4 years ago and he is followed in the [facility] for his cirrhosis management currently patient has round soft abdomen with some guarding to his epigastric and mid abdominal area CT scan shows small to moderate ascites and paracentesis has been considered this admission but patient 's PT/INR is 2.4 today. Patient is obviously jaundice skin and scleral icterus ; but he is alert oriented and answering simple questions. Patient notes initial loose stools, defecation usually 3 times a day but now states stools appear to be more formed. Patient does note some symptoms of nausea but no vomiting at this time but has had uncontrolled vomiting on his past hospital admission at [facility]. EGD was done approximately 3-4 years ago on his initial diagnosis no previous colonoscopy. Patient notes that he has been attempting herbal remedies at home such as milk thistle, but has been on spironolactone and Lasix in the past. Current labs reviewed showing WBC count 12.6, hemoglobin 1.9, PT/INR 2.4, bilirubin 21.5, AST 110 and ALT 49, alkaline phosphatase 139 and lipase 1734, ammonia level 47. Gastroenterology was consulted to assist with his plan of care and symptom management which appears to be hepatic failure secondary to alcoholic cirrhosis. <Denise Gomes - Last Filed: 02/16/18 11:10> Review of Systems All other systems reviewed negative except as stated in HPI <Denise Gomes - Last Filed: 02/16/18 11:10> PMFSH - History History Provided By: Patient - Medical History Medical History: Medical History (Last Reviewed 02/14/18 @ 23:15 by JAMES Vallecillo) Cirrhosis Pancreatitis - Surgical History Surgical History: Surgical History (Last Updated 02/15/18 @ 06:00 by Asif Gonzalez MD) History of esophagogastroduodenoscopy (EGD) - Family History Family History: Family History (Last Updated 02/15/18 @ 05:59 by Asif Gonzalez MD) Father Healthy adult male Mother Healthy female adult - Tobacco History Second Hand Smoke Exposure: No Smoking Status: Never smoker - Alcohol History How Often Do You Have a Drink Containing Alcohol: Never - Substance Use History Substance History: Past History - Travel History Recent Travel in the [place] Within the Last 8 Weeks: No Recent Travel Out of the Country Within the Last 8 Weeks: No - Immunization History Tetanus Immunization: Unsure <Denise Gomes - Last Filed: 02/16/18 11:10> - Medical History Medical History: Medical History (Last Reviewed 02/14/18 @ 23:15 by JAMES Vallecillo) Cirrhosis Pancreatitis - Surgical History Surgical History: Surgical History (Last Updated 02/15/18 @ 06:00 by Asif Gonzalez MD) History of esophagogastroduodenoscopy (EGD) - Family History Family History: Family History (Last Updated 02/15/18 @ 05:59 by Asif Gonzalez MD) Father Healthy adult male Mother Healthy female adult <Lj Peña - Last Filed: 02/16/18 13:22> Medications and Allergies Active Medications: Active Medications Al Hydroxide/Mg Hydroxide (Milk Of Magnesia Liq) 30 ml PO Q12H PRN PRN Reason: Mild Constipation Bisacodyl (Dulcolax Supp) 10 mg RECTAL DAILY PRN PRN Reason: SEVERE CONSITIPATION Diphenhydramine HCl (Benadryl) 25 mg PO Q6H PRN PRN Reason: ITCHING Last Admin: 02/15/18 22:50 Dose: 25 mg Furosemide (Lasix) 40 mg PO DAILY GEOFF Sodium Chloride (Ns Inj) 1,000 mls @ 0 mls/hr IV.SIG BOLUS GEOFF Sodium Chloride (Ns Inj) 1,000 mls @ 125 mls/hr IV.CONT .Q8H GEOFF Last Admin: 02/16/18 06:08 Dose: Not Given Lactulose (Lactulose Liq) 30 ml PO DAILY PRN PRN Reason: SEVERE CONSITIPATION Lactulose (Lactulose Liq) 30 ml PO DAILY [facility] Magnesium Oxide (Mag-Ox) 400 mg PO DAILY [facility] Last Admin: 02/16/18 08:17 Dose: 400 mg Morphine Sulfate (Morphine Inj) 2 mg IV.PUSH Q3H PRN PRN Reason: pain 1 to 10 Last Admin: 02/16/18 08:24 Dose: 2 mg Ondansetron HCl (Zofran Odt) 4 mg PO Q6H PRN PRN Reason: NAUSEA OR VOMITING Ondansetron HCl (Zofran Inj) 4 mg IV.PUSH Q6H PRN PRN Reason: NAUSEA OR VOMITING Last Admin: 02/16/18 08:22 Dose: 4 mg Phytonadione (Mephyton Liq) 5 mg PO DAILY [facility] Last Admin: 02/16/18 08:17 Dose: 5 mg Promethazine HCl (Phenergan) 25 mg PO Q6H PRN PRN Reason: NAUSEA OR VOMITING Promethazine HCl (Phenergan Supp) 25 mg RECTAL Q6H PRN PRN Reason: NAUSEA OR VOMITING Sennosides (Senokot) 17.2 mg PO Q12H PRN PRN Reason: Moderate Constipation Sodium Chloride (Ns Flush) 2 ml IV.FLUSH PRN PRN PRN Reason: FLUSH AFTER USING IV ACCESS Spironolactone (Aldactone) 50 mg PO DAILY [facility] Zinc Sulfate (Zinc-220) 220 mg PO DAILY [facility] Last Admin: 02/16/18 08:17 Dose: 220 mg <Denise Gomes M - Last Filed: 02/16/18 11:10> Active Medications: Active Medications Al Hydroxide/Mg Hydroxide (Milk Of Magnesia Liq) 30 ml PO Q12H PRN PRN Reason: Mild Constipation Bisacodyl (Dulcolax Supp) 10 mg RECTAL DAILY PRN PRN Reason: SEVERE CONSITIPATION Diphenhydramine HCl (Benadryl) 25 mg PO Q6H PRN PRN Reason: ITCHING Last Admin: 02/16/18 11:29 Dose: 25 mg Furosemide (Lasix) 40 mg PO DAILY [facility] Last Admin: 02/16/18 11:29 Dose: 40 mg Sodium Chloride (Ns Inj) 1,000 mls @ 0 mls/hr IV.SIG BOLUS [facility] Sodium Chloride (Ns Inj) 1,000 mls @ 125 mls/hr IV.CONT .Q8H [facility] Last Admin: 02/16/18 12:50 Dose: 125 mls/hr Lactulose (Lactulose Liq) 30 ml PO DAILY PRN PRN Reason: SEVERE CONSITIPATION Lactulose (Lactulose Liq) 30 ml PO DAILY [facility] Last Admin: 02/16/18 11:29 Dose: 30 ml Magnesium Oxide (Mag-Ox) 400 mg PO DAILY [facility] Last Admin: 02/16/18 08:17 Dose: 400 mg Morphine Sulfate (Morphine Inj) 2 mg IV.PUSH Q3H PRN PRN Reason: pain 1 to 10 Last Admin: 02/16/18 12:53 Dose: 2 mg Ondansetron HCl (Zofran Odt) 4 mg PO Q6H PRN PRN Reason: NAUSEA OR VOMITING Ondansetron HCl (Zofran Inj) 4 mg IV.PUSH Q6H PRN PRN Reason: NAUSEA OR VOMITING Last Admin: 02/16/18 08:22 Dose: 4 mg Phytonadione (Mephyton Liq) 5 mg PO DAILY [facility] Last Admin: 02/16/18 08:17 Dose: 5 mg Promethazine HCl (Phenergan) 25 mg PO Q6H PRN PRN Reason: NAUSEA OR VOMITING Promethazine HCl (Phenergan Supp) 25 mg RECTAL Q6H PRN PRN Reason: NAUSEA OR VOMITING Rifaximin (Xifaxan) 550 mg PO Q12HR [facility] Last Admin: 02/16/18 11:29 Dose: 550 mg Sennosides (Senokot) 17.2 mg PO Q12H PRN PRN Reason: Moderate Constipation Sodium Chloride (Ns Flush) 2 ml IV.FLUSH PRN PRN PRN Reason: FLUSH AFTER USING IV ACCESS Spironolactone (Aldactone) 50 mg PO DAILY [facility] Last Admin: 02/16/18 11:29 Dose: 50 mg Zinc Sulfate (Zinc-220) 220 mg PO DAILY [facility] Last Admin: 02/16/18 08:17 Dose: 220 mg <Hemaidan,Ammar - Last Filed: 02/16/18 13:22> Allergies Allergy/AdvReac Type Severity Reaction Status Date / Time No Known Allergies Allergy Verified 02/14/18 21:08 Home Medications Medication Instructions Recorded Confirmed Type clonidine HCl 0.1 mg PO BID 02/14/18 02/14/18 History magnesium 500 mg PO DAILY 02/14/18 02/14/18 History phytonadione (vitamin K1) [vitamin 0 mg PO DAILY 02/14/18 02/14/18 History K] Exam Vital signs: Vital Signs 02/15/18 11:51 02/15/18 16:00 02/15/18 20:00 Temperature 98.4 F 98.0 F Pulse Rate 82 81 85 Respiratory Rate 16 16 21 Blood Pressure 115/55 L 116/56 L 120/58 L Pulse Oximetry 96 97 97 02/15/18 23:49 02/16/18 04:00 02/16/18 07:57 Temperature 98.0 F 98.1 F 98.0 F Pulse Rate 78 81 81 Respiratory Rate 19 18 16 Blood Pressure 119/58 L 122/80 123/60 Pulse Oximetry 97 100 97 Intake & Output 02/15/18 02/16/18 02/16/18 18:59 06:59 18:59 Intake Total 1999 3180 / 3180 Output Total 780 / 780 Balance 1999 2400 / 2400 Intake: IV 1999 1000 / 1000 NS Inj 1,000 ML @ 125 mls/hr IV 1999 1000 / 1000 .CONT .Q8H [facility] Rx#:[id number] Other 2180 / 2180 Output: Urine 780 / 780 Other: Other Intake Source Saline Solution # Voids 2 Date of Last Bowel Movement 02/15/18 02/15/18 02/15/18 - Constitutional moderate distress, chronically ill appearing, disheveled, cooperative - Routine HEENT Exam Head: Present: normocephalic (Icteric skin and sclera) ENT: Present: mucous membranes dry - Routine Respiratory Exam Present: accessory muscle use, diminished air movement - Routine Cardiovascular Exam Present: S1, S2 - Routine Abdominal Exam Present: soft, normoactive bowel sounds, distended (Moderate) - Routine Skin Exam Present: jaundice <Denise Gomes M - Last Filed: 02/16/18 11:10> Vital signs: Vital Signs 02/15/18 16:00 02/15/18 20:00 02/15/18 23:49 Temperature 98.4 F 98.0 F 98.0 F Pulse Rate 81 85 78 Respiratory Rate 16 21 19 Blood Pressure 116/56 L 120/58 L 119/58 L Pulse Oximetry 97 97 97 02/16/18 04:00 02/16/18 07:57 02/16/18 11:17 Temperature 98.1 F 98.0 F 98.2 F Pulse Rate 81 81 80 Respiratory Rate 18 16 12 Blood Pressure 122/80 123/60 121/58 L Pulse Oximetry 100 97 94 L Intake & Output 02/15/18 02/16/18 02/16/18 18:59 06:59 18:59 Intake Total 1999 3180 / 3180 1000 / 1000 Output Total 780 / 780 Balance 1999 2400 / 2400 1000 / 1000 Intake: IV 1999 1000 / 1000 1000 / 1000 NS Inj 1,000 ML @ 125 mls/hr IV 1999 1000 / 1000 1000 / 1000 .CONT .Q8H [facility] Rx#:[id number] Other 2180 / 2179 Output: Urine 780 / 780 Other: Other Intake Source Saline Solution # Voids 2 Date of Last Bowel Movement 02/15/18 02/15/18 02/15/18 <Lj Peña - Last Filed: 02/16/18 13:22> Results - Labs CBC & Chem 7: 02/16/18 05:24 02/16/18 05:24 Labs: Laboratory Results - last 24 hr 02/15/18 02/15/18 02/16/18 21:20 21:20 05:24 WBC 12.6 H RBC 2.30 L Hgb 9.1 L Hct 24.9 L MCV 108.3 H MCH 39.6 H MCHC 36.5 H RDW 16.5 Plt Count 145 L MPV 7.9 Prelim Diff (Auto) Slide review pending Neut % (Auto) 78.7 H Lymph % (Auto) 11.0 [place] % (Auto) 8.0 Eos % (Auto) 1.7 Baso % (Auto) 0.6 Neut # (Auto) 9.9 H Lymph # (Auto) 1.4 [place] # (Auto) 1.0 H Eos # (Auto) 0.2 Baso # (Auto) 0.1 WBC Differential Manual diff final Seg Neuts % (Manual) 80 H Band Neuts % (Manual) 8 H Lymphocytes % (Manual) 4 L Monocytes % (Manual) 7 Basophils % (Manual) 1 Abs Neuts (Manual) 11.1 H Differential Comment . Platelet Estimate Low L Platelet Morphology Normal Basophilic Stippling Faint H [place] Cells 1+ H Acanthocytes (Spur) Occ H Keratocytes Occ H PT 26.8 H INR 2.7 APTT 43.6 H Fibrinogen 144 L Sodium Potassium Chloride Carbon Dioxide Anion Gap BUN Creatinine Estimated GFR Random Glucose Calcium Total Bilirubin AST ALT Alkaline Phosphatase Total Protein Albumin Vitamin B12 1871 H Folate 7.0 02/16/18 02/16/18 05:24 05:24 WBC RBC Hgb Hct MCV MCH MCHC RDW Plt Count MPV Prelim Diff (Auto) Neut % (Auto) Lymph % (Auto) [place] % (Auto) Eos % (Auto) Baso % (Auto) Neut # (Auto) Lymph # (Auto) [place] # (Auto) Eos # (Auto) Baso # (Auto) WBC Differential Seg Neuts % (Manual) Band Neuts % (Manual) Lymphocytes % (Manual) Monocytes % (Manual) Basophils % (Manual) Abs Neuts (Manual) Differential Comment Platelet Estimate Platelet Morphology Basophilic Stippling [place] Cells Acanthocytes (Spur) Keratocytes PT 24.2 H INR 2.4 APTT Fibrinogen Sodium 135 L Potassium 4.3 D Chloride 103 Carbon Dioxide 24.1 Anion Gap 8 BUN 14 Creatinine 0.92 Estimated GFR Greater than 89 Random Glucose 74 Calcium 7.8 L Total Bilirubin 21.5 H AST 110 H ALT 49 Alkaline Phosphatase 139 H Total Protein 6.2 L D Albumin 1.7 L Vitamin B12 Folate <Denise Gomes - Last Filed: 02/16/18 11:10> - Labs CBC & Chem 7: 02/16/18 05:24 02/16/18 05:24 Labs: Laboratory Results - last 24 hr 02/15/18 02/15/18 02/16/18 21:20 21:20 05:24 WBC 12.6 H RBC 2.30 L Hgb 9.1 L Hct 24.9 L MCV 108.3 H MCH 39.6 H MCHC 36.5 H RDW 16.5 Plt Count 145 L MPV 7.9 Prelim Diff (Auto) Slide review pending Neut % (Auto) 78.7 H Lymph % (Auto) 11.0 [place] % (Auto) 8.0 Eos % (Auto) 1.7 Baso % (Auto) 0.6 Neut # (Auto) 9.9 H Lymph # (Auto) 1.4 [place] # (Auto) 1.0 H Eos # (Auto) 0.2 Baso # (Auto) 0.1 WBC Differential Manual diff final Seg Neuts % (Manual) 80 H Band Neuts % (Manual) 8 H Lymphocytes % (Manual) 4 L Monocytes % (Manual) 7 Basophils % (Manual) 1 Abs Neuts (Manual) 11.1 H Differential Comment . Platelet Estimate Low L Platelet Morphology Normal Basophilic Stippling Faint H Bin Cells 1+ H Acanthocytes (Spur) Occ H Keratocytes Occ H PT 26.8 H INR 2.7 APTT 43.6 H Fibrinogen 144 L Sodium Potassium Chloride Carbon Dioxide Anion Gap BUN Creatinine Estimated GFR Random Glucose Calcium Total Bilirubin AST ALT Alkaline Phosphatase Total Protein Albumin Lipase Vitamin B12 1871 H Folate 7.0 02/16/18 02/16/18 02/16/18 05:24 05:24 10:21 WBC RBC Hgb Hct MCV MCH MCHC RDW Plt Count MPV Prelim Diff (Auto) Neut % (Auto) Lymph % (Auto) [place] % (Auto) Eos % (Auto) Baso % (Auto) Neut # (Auto) Lymph # (Auto) [place] # (Auto) Eos # (Auto) Baso # (Auto) WBC Differential Seg Neuts % (Manual) Band Neuts % (Manual) Lymphocytes % (Manual) Monocytes % (Manual) Basophils % (Manual) Abs Neuts (Manual) Differential Comment Platelet Estimate Platelet Morphology Basophilic Stippling Bin Cells Acanthocytes (Spur) Keratocytes PT 24.2 H INR 2.4 APTT Fibrinogen Sodium 135 L Potassium 4.3 D Chloride 103 Carbon Dioxide 24.1 Anion Gap 8 BUN 14 Creatinine 0.92 Estimated GFR Greater than 89 Random Glucose 74 Calcium 7.8 L Total Bilirubin 21.5 H AST 110 H ALT 49 Alkaline Phosphatase 139 H Total Protein 6.2 L D Albumin 1.7 L Lipase 785 H Vitamin B12 Folate <SrinivasaLj acharya - Last Filed: 02/16/18 13:22> Assessment and Plan - Plan 32-year-old male who was admitted to the hospital here at [place] on 02/14/2018 with sharp epigastric abdominal pain progressively worsening since his recent hospital stay at [facility]. According to the record and patient he was discharged 2 days before this admission, and was not given any new medications except what he was on before and no pain meds. Patient states that he does not drink any alcohol in the past 3-4 months and does not smoke does not do drugs and does not drink coffee. Patient notes his diagnosis of cirrhosis was 3-4 years ago and he is followed in the [facility] for his cirrhosis management currently patient has round soft abdomen with some guarding to his epigastric and mid abdominal area CT scan shows small to moderate ascites and paracentesis has been considered this admission but patient's PT/INR is 2.4 today. Patient is obviously jaundice skin and scleral icterus; but he is alert oriented and answering simple questions. Patient notes initial loose stools, defecation usually 3 times a day but now states stools appear to be more formed. Patient does note some symptoms of nausea but no vomiting at this time but has had uncontrolled vomiting on his past hospital admission at [facility]. EGD was done approximately 3-4 years ago on his initial diagnosis no previous colonoscopy. Patient notes that he has been attempting herbal remedies at home such as milk thistle, but has been on spironolactone and Lasix in the past. Current labs reviewed showing WBC count 12.6, hemoglobin 1.9, PT/INR 2.4, bilirubin 21.5, AST 110 and ALT 49, alkaline phosphatase 139 and lipase 1734, ammonia level 47. Gastroenterology was consulted to assist with his plan of care and symptom management which appears to be hepatic failure secondary to alcoholic cirrhosis. 1. Hepatic failure diagnosed 3-4 years ago secondary to probable alcoholic cirrhosis. has been followed in the [facility] and had 2 recent hospital stays at [facility]. When he left the hospital 2 days before this admission he felt his abdominal pain was not controlled and that he continued to feel pressure in the epigastric region as well as in the right upper quadrant. CT scan shows mild to moderate ascites and IR has been consulted for possible paracentesis but PT/INR level is too high, 2.4. 2. Hyperbilirubinemia , transaminitis secondary to #1 3, space abdominal pain right upper quadrant and mid abdominal area secondary to hepato-megaly and splenomegaly as well as ascites. 4.Anemia, secondary to #1 5. Coagulopathy current INR 2.4, patient is on vitamin K without acute effectiveness. 6. Elevated lipase level CT negative for any pancreatitis. 7. Generalized edema especially in the lower extremities , trunk Plan Diet currently in the p.o. with IV fluids, consider clear liquids versus Consider stopping IV fluids and feed patient low-sodium diet if INR is not going to be able to do paracentesis. Lasix 40 mg daily PT/INR daily Spironolactone 50 mg daily may need to increase dose Lactulose 30 mg daily Xifaxan 550 mg every 12hr Agree with paracentesis when INR is stable Monitor labs, supportive care, prognosis guarded to poor, consider transplant evaluation in the future Further recommendations to follow Patient was seen per myself and Dr. Peña, note was written on his behalf <Denise Gomes - Last Filed: 02/16/18 11:10> - Plan Patient was seen and examined, agree with above note, patient has had a induced pancreatitis and cirrhosis with hepatitis, has been to the hospital 3 times in the last month for same problem, according to the patient he was not taking diuretics as an outpatient or beta-anuj to reduce portal hypertension We will start that, we will do paracentesis when INR is better Need to be abstinence of alcohol completely Overall guarded prognosis if he does not stop alcohol, he may end up needing liver transplant <Lj Peña - Last Filed: 02/16/18 13:22>
[2018-02-16] MEDS: rifAXIMin 550 MG Tablet PO SCH ×2 (11:29→20:50)
[2018-02-16] MEDS: Spironolactone 50 MG Tablet PO SCH (11:29)
[2018-02-16] MEDS: Furosemide 40 MG Tablet PO SCH (11:29)
--- NOTE | 2018-02-16 19:49 | P.PNONC ---
Subjective Interval history: Resting comfortably in bed. s/p evaluation by GI team. Objective Vital Signs/Intake & Output: Vital Signs 02/15/18 20:00 02/15/18 23:49 02/16/18 04:00 Temperature 98.0 F 98.0 F 98.1 F Pulse Rate 85 78 81 Respiratory Rate 21 19 18 Blood Pressure 120/58 L 119/58 L 122/80 Pulse Oximetry 97 97 100 02/16/18 07:57 02/16/18 11:17 02/16/18 14:47 Temperature 98.0 F 98.2 F 98.3 F Pulse Rate 81 80 83 Respiratory Rate 16 12 12 Blood Pressure 123/60 121/58 L 127/59 L Pulse Oximetry 97 94 L 96 Intake & Output 02/16/18 02/16/18 02/17/18 06:59 18:59 06:59 Intake Total 3180 / 3180 1000 / 1000 Output Total 780 / 780 Balance 2400 / 2400 1000 / 1000 Intake: IV 1000 / 1000 1000 / 1000 NS Inj 1,000 ML @ 125 mls/hr IV 1000 / 1000 1000 / 1000 .CONT .Q8H [facility] Rx#:[id number] Other 2180 / 2180 Output: Urine 780 / 780 Other: Other Intake Source Saline Solution Date of Last Bowel Movement 02/15/18 02/16/18 # Bowel Movements 1 Result Diagrams: 02/16/18 05:24 02/16/18 05:24 Laboratory Results: Laboratory Results - last 24 hr 02/15/18 02/15/18 02/16/18 21:20 21:20 05:24 WBC 12.6 H RBC 2.30 L Hgb 9.1 L Hct 24.9 L MCV 108.3 H MCH 39.6 H MCHC 36.5 H RDW 16.5 Plt Count 145 L MPV 7.9 Prelim Diff (Auto) Slide review pending Neut % (Auto) 78.7 H Lymph % (Auto) 11.0 [place] % (Auto) 8.0 Eos % (Auto) 1.7 Baso % (Auto) 0.6 Neut # (Auto) 9.9 H Lymph # (Auto) 1.4 [place] # (Auto) 1.0 H Eos # (Auto) 0.2 Baso # (Auto) 0.1 WBC Differential Manual diff final Seg Neuts % (Manual) 80 H Band Neuts % (Manual) 8 H Lymphocytes % (Manual) 4 L Monocytes % (Manual) 7 Basophils % (Manual) 1 Abs Neuts (Manual) 11.1 H Differential Comment . Platelet Estimate Low L Platelet Morphology Normal Basophilic Stippling Faint H Bin Cells 1+ H Acanthocytes (Spur) Occ H Keratocytes Occ H PT 26.8 H INR 2.7 APTT 43.6 H Fibrinogen 144 L Sodium Potassium Chloride Carbon Dioxide Anion Gap BUN Creatinine Estimated GFR Random Glucose Calcium Total Bilirubin AST ALT Alkaline Phosphatase Total Protein Albumin Lipase Vitamin B12 1871 H Folate 7.0 02/16/18 02/16/18 02/16/18 05:24 05:24 10:21 WBC RBC Hgb Hct MCV MCH MCHC RDW Plt Count MPV Prelim Diff (Auto) Neut % (Auto) Lymph % (Auto) [place] % (Auto) Eos % (Auto) Baso % (Auto) Neut # (Auto) Lymph # (Auto) [place] # (Auto) Eos # (Auto) Baso # (Auto) WBC Differential Seg Neuts % (Manual) Band Neuts % (Manual) Lymphocytes % (Manual) Monocytes % (Manual) Basophils % (Manual) Abs Neuts (Manual) Differential Comment Platelet Estimate Platelet Morphology Basophilic Stippling Bin Cells Acanthocytes (Spur) Keratocytes PT 24.2 H INR 2.4 APTT Fibrinogen Sodium 135 L Potassium 4.3 D Chloride 103 Carbon Dioxide 24.1 Anion Gap 8 BUN 14 Creatinine 0.92 Estimated GFR Greater than 89 Random Glucose 74 Calcium 7.8 L Total Bilirubin 21.5 H AST 110 H ALT 49 Alkaline Phosphatase 139 H Total Protein 6.2 L D Albumin 1.7 L Lipase 785 H Vitamin B12 Folate 02/16/18 13:16 WBC RBC Hgb Hct MCV MCH MCHC RDW Plt Count MPV Prelim Diff (Auto) Neut % (Auto) Lymph % (Auto) [place] % (Auto) Eos % (Auto) Baso % (Auto) Neut # (Auto) Lymph # (Auto) [place] # (Auto) Eos # (Auto) Baso # (Auto) WBC Differential Seg Neuts % (Manual) Band Neuts % (Manual) Lymphocytes % (Manual) Monocytes % (Manual) Basophils % (Manual) Abs Neuts (Manual) Differential Comment Platelet Estimate Platelet Morphology Basophilic Stippling Bin Cells Acanthocytes (Spur) Keratocytes PT INR APTT 40.0 H Fibrinogen Sodium Potassium Chloride Carbon Dioxide Anion Gap BUN Creatinine Estimated GFR Random Glucose Calcium Total Bilirubin AST ALT Alkaline Phosphatase Total Protein Albumin Lipase Vitamin B12 Folate Medications: Active Medications Generic Name Dose Route Start Last Admin Trade Name Freq PRN Reason Stop Dose Admin Diphenhydramine HCl 25 mg 02/15/18 22:30 02/16/18 11:29 Benadryl PO 25 mg Q6H PRN Administration ITCHING Furosemide 40 mg 02/16/18 11:00 02/16/18 11:29 Lasix PO 40 mg DAILY GEOFF Administration Sodium Chloride 1,000 mls @ 125 mls/hr 02/15/18 06:15 02/16/18 13:55 Ns Inj IV.CONT Not Given .Q8H GEOFF Lactulose 30 ml 02/16/18 09:00 02/16/18 11:29 Lactulose Liq PO 30 ml DAILY GEOFF Administration Magnesium Oxide 400 mg 02/15/18 09:00 02/16/18 08:17 Mag-Ox PO 400 mg DAILY GEOFF Administration Morphine Sulfate 2 mg 02/15/18 03:17 02/16/18 16:58 Morphine Inj IV.PUSH 2 mg Q3H PRN Administration pain 1 to 10 Ondansetron HCl 4 mg 02/15/18 06:06 02/16/18 08:22 Zofran Inj IV.PUSH 4 mg Q6H PRN Administration NAUSEA OR VOMITING Phytonadione 5 mg 02/15/18 09:00 02/16/18 08:17 Mephyton Liq PO 5 mg DAILY GEOFF Administration Rifaximin 550 mg 02/16/18 11:15 02/16/18 11:29 Xifaxan PO 550 mg Q12HR GEOFF Administration Spironolactone 50 mg 02/16/18 11:00 02/16/18 11:29 Aldactone PO 50 mg DAILY GEOFF Administration Zinc Sulfate 220 mg 02/15/18 09:00 02/16/18 08:17 Zinc-220 PO 220 mg DAILY GEOFF Administration Objective Remarks: GENERAL: chronically ill appearing man in no distress SKIN: Warm and dry. HEAD: Normocephalic. EYES: No scleral icterus. NECK: Supple, trachea midline. No JVD or lymphadenopathy. LYMPHATIC: No adenopathy. RESPIRATORY: No accessory muscle use. GASTROINTESTINAL: distended abdomen EXTREMITIES: bilateral edema MUSCULOSKELETAL: Adequate muscle tone. NEUROLOGICAL: No obvious focal deficit. Awake, alert, and oriented x3. PSYCHIATRIC: Appropriate mood and affect; insight and judgment normal. Assessment/Plan - Plan 1. Coagulopathy: prolongation of PT, PTT low fibrinogen. Likely secondary to known liver disease as coagulation factors are synthesized in the liver. He is currently on vitamin K replacment with no improvement in laboratory studies. Will check factor V, factor X levels. Will follow up mixing studies.
[2018-02-17] MEDS: Morphine Inj 4 MG/ML Vial IV.PUSH PRN ×6 (01:42→22:19)
[2018-02-17 05:28] LABS: Baso % (Auto) 0.5 % (0.0-2.0); Eos # (Auto) 0.2 th/mm3 (0.0-0.4); Eos % (Auto) 2.3 % (0.0-4.0); Hematocrit 24.8 % (39.0-51.0); Hemoglobin 8.7 gm/dL (13.0-17.0); Lymph # (Auto) 1.2 th/mm3 (1.0-4.8); Mean Corpuscular Hemoglobin 38.5 pg (27.0-34.0); Mean Platelet Volume 7.5 fL (7.0-11.0); Mono # (Auto) 0.8 th/mm3 (0.0-0.9); Mono % (Auto) 7.8 % (0.0-8.0); Neut # (Auto) 8.3 th/mm3 (1.8-7.7); Neut % (Auto) 78.4 % (16.0-70.0); Platelet Count 136 th/mm3 (150-450); Red Blood Count 2.26 mil/mm3 (4.50-5.90); Red Cell Distribution Width 16.5 % (11.6-17.2); White Blood Count 10.6 th/mm3 (4.0-11.0)
[2018-02-17 05:41] LABS: Activated Partial Thrombo Time 42.4 sec (24.3-30.1); INR 2.1 Ratio; Prothrombin Time 20.9 sec (9.8-11.6)
[2018-02-17] MEDS: Sod Chloride 0.9% Inj 1,000 ML IV.CONT SCH ×4 (05:50→22:19)
[2018-02-17 05:51] LABS: Alanine Aminotransferase 46 U/L (12-78)
[2018-02-17 05:56] LABS: Albumin 1.6 g/dL (3.4-5.0); Alkaline Phosphatase 135 U/L (45-117); Anion Gap 10 meq/L (5-15); Aspartate Aminotransferase 106 U/L (15-37); Blood Urea Nitrogen 12 mg/dL (7-18); Calcium 7.5 mg/dL (8.5-10.1); Carbon Dioxide 22.8 meq/L (21.0-32.0); Chloride 104 meq/L (98-107); Glomerular Filtration Rate 88 mL/min (>89); Glucose,Random 112 mg/dL (74-106); Lipase 671 U/L (73-393); Potassium 3.5 meq/L (3.5-5.1); Sodium 137 meq/L (136-145); Total Protein 6.1 g/dL (6.4-8.2)
[2018-02-17 07:00] LABS: Acanthocytes Occ; Eosinophils 2 % (0-4); Lymphocytes 7 % (9-44); Monocytes 4 % (0-8); Platelet Morphology Normal (Normal)
[2018-02-17 07:01] LABS: Burr Cells 1+
[2018-02-17] MEDS: rifAXIMin 550 MG Tablet PO SCH ×2 (08:28→22:20)
[2018-02-17] MEDS: Spironolactone 50 MG Tablet PO SCH (08:29)
[2018-02-17] MEDS: Magnesium Oxide 400 MG Tablet PO SCH (08:29)
[2018-02-17] MEDS: Phytonadione 5 MG/SWFI 5 ML Oral Syringe PO SCH (08:29)
[2018-02-17] MEDS: Furosemide 40 MG Tablet PO SCH (08:29)
--- NOTE | 2018-02-17 11:35 | P.PNIM ---
Subjective Interval history: Abdominal pain symptoms are improved. Patient remains distended. Diagnostic and therapeutic paracentesis planned but currently patient's INR is 2.1. This is an improvement however he is not likely to improve enough for paracentesis without additional treatment, based on clinical degree of liver disease. We discussed fresh frozen plasma to attempt to get his INR under therapeutic range stable enough for paracentesis. Physical Exam Vital signs: Vital Signs 02/16/18 14:47 02/16/18 20:00 02/16/18 23:33 Temperature 98.3 F 98.5 F 98.6 F Pulse Rate 83 81 76 Respiratory Rate 12 15 16 Blood Pressure 127/59 L 125/60 137/71 Pulse Oximetry 96 96 95 02/17/18 04:00 02/17/18 07:42 Temperature 98.7 F 98.4 F Pulse Rate 78 78 Respiratory Rate 15 16 Blood Pressure 121/62 132/69 Pulse Oximetry 96 97 Intake & Output 02/16/18 02/17/18 02/17/18 18:59 06:59 18:59 Intake Total 1000 / 1000 1999 Balance 1000 / 1000 1999 Intake: IV 1000 / 1000 1999 NS Inj 1,000 ML @ 125 mls/hr IV 1000 / 1000 1999 .CONT .Q8H [facility] Rx#:[id number] Other: Date of Last Bowel Movement 02/16/18 02/16/18 # Bowel Movements 1 Narrative: GENERAL: NAD, A&Ox3 HEAD: Normocephalic. NECK: Supple, trachea midline. No lymphadenopathy. EYES: No scleral icterus. No injection or drainage. CARDIOVASCULAR: Regular rate and rhythm without murmurs, gallops, or rubs. RESPIRATORY: Breath sounds equal bilaterally. No accessory muscle use. GASTROINTESTINAL: Abdomen soft, non-tender, abdomen distended. MUSCULOSKELETAL: No cyanosis, or edema. SKIN: Warm and dry. Mild jaundice. NEURO: No focal neurological deficits. Results - Labs CBC & Chem 7: 02/17/18 04:58 02/17/18 04:58 Laboratory Results - last 24 hr 02/16/18 02/16/18 02/17/18 13:10 13:16 04:58 WBC RBC Hgb Hct MCV MCH MCHC RDW Plt Count MPV Prelim Diff (Auto) Neut % (Auto) Lymph % (Auto) [place] % (Auto) Eos % (Auto) Baso % (Auto) Neut # (Auto) Lymph # (Auto) [place] # (Auto) Eos # (Auto) Baso # (Auto) WBC Differential Seg Neuts % (Manual) Band Neuts % (Manual) Lymphocytes % (Manual) Monocytes % (Manual) Eosinophils % (Manual) Basophils % (Manual) Abs Neuts (Manual) Differential Comment Platelet Estimate Platelet Morphology [place] Cells Acanthocytes (Spur) Keratocytes Smear Path Review PT INR APTT 40.0 H PT Normal Plasma Immed 10.4 PT Normal Plasma 1 Hr 10.5 PT Pat/Norm 1:4 Immed 10.7 PT Pat/Norm 1:1 Immed 12.0 H PT Pat/Norm 1:1 1h 37c 12.6 H PT Pat/Norm 4:1 Immed 15.1 H PT Patient Plasma Immed 22.7 H PT Mix Interpretation PTT Normal Plasma Immed 24.7 PTT Normal Plasma 1 Hr 26.3 PTT Pat/Norm 1:4 Immed 24.7 PTT Pat/Norm 1:1 Immed 25.6 PTT Pat/Norm 1:1 1h 37c 27.5 PTT Pat/Norm 4:1 Immed 30.5 H PTT Patient Plsma Immed 40.4 H PTT Mix Interpretation Factor Inhibitor Screen Sodium Potassium Chloride Carbon Dioxide Anion Gap BUN Creatinine Estimated GFR Random Glucose Calcium Total Bilirubin AST ALT Alkaline Phosphatase Total Protein Albumin Lipase 02/17/18 02/17/18 02/17/18 04:58 04:58 04:58 WBC 10.6 RBC 2.26 L Hgb 8.7 L Hct 24.8 L MCV 110.0 H MCH 38.5 H MCHC 35.0 RDW 16.5 Plt Count 136 L MPV 7.5 Prelim Diff (Auto) Slide review pending Neut % (Auto) 78.4 H Lymph % (Auto) 11.0 [place] % (Auto) 7.8 Eos % (Auto) 2.3 Baso % (Auto) 0.5 Neut # (Auto) 8.3 H Lymph # (Auto) 1.2 [place] # (Auto) 0.8 Eos # (Auto) 0.2 Baso # (Auto) 0.0 WBC Differential Manual diff final Seg Neuts % (Manual) 74 H Band Neuts % (Manual) 12 H Lymphocytes % (Manual) 7 L Monocytes % (Manual) 4 Eosinophils % (Manual) 2 Basophils % (Manual) 1 Abs Neuts (Manual) 9.1 H Differential Comment . Platelet Estimate Low L Platelet Morphology Normal Bin Cells 1+ H Acanthocytes (Spur) Occ H Keratocytes Occ H Smear Path Review PT 20.9 H INR 2.1 APTT 42.4 H PT Normal Plasma Immed PT Normal Plasma 1 Hr PT Pat/Norm 1:4 Immed PT Pat/Norm 1:1 Immed PT Pat/Norm 1:1 1h 37c PT Pat/Norm 4:1 Immed PT Patient Plasma Immed PT Mix Interpretation PTT Normal Plasma Immed PTT Normal Plasma 1 Hr PTT Pat/Norm 1:4 Immed PTT Pat/Norm 1:1 Immed PTT Pat/Norm 1:1 1h 37c PTT Pat/Norm 4:1 Immed PTT Patient Plsma Immed PTT Mix Interpretation Factor Inhibitor Screen Sodium 137 Potassium 3.5 D Chloride 104 Carbon Dioxide 22.8 Anion Gap 10 BUN 12 Creatinine 0.99 Estimated GFR 88 L Random Glucose 112 H Calcium 7.5 L Total Bilirubin 21.0 H AST 106 H ALT 46 Alkaline Phosphatase 135 H Total Protein 6.1 L Albumin 1.6 L Lipase 671 H Assessment and Plan - Plan 32-year-old male admitted secondary to abdominal pain, pancreatitis, cirrhosis, and jaundice Acute pancreatitis Abdominal pain Lipase improving Continue IV hydration Continue monitoring lipase Diet advanced to regular diet Chronic liver disease Alcoholic hepatitis Jaundice Hyperbilirubinemia Esophageal varices Hepatic encephalopathy Suspected end-stage liver disease Ascites Paracentesis planned 2 units FFP provided today to try to decrease INR Follow-up INR in a.m. Ultrasound paracentesis when INR stable Continue to follow bilirubin Continue to follow LFTs GI following Continue lactulose Continue zinc Hyperkalemia. Continue monitoring potassium levels Replace as needed Leukocytosis. No clinical signs of infection may be reactive Continue following CBC DVT Prophylaxis SCDs
[2018-02-17] MEDS ORDERED: Sodium Chlor 0.9% Inj 250 ML IV.SIG SCH (12:00)
--- NOTE | 2018-02-17 13:20 | P.PNGI ---
Subjective Interval history: Patient resting comfortably in bed. Reports mild abdominal discomfort due to ascites. Physical Exam Vital signs: Vital Signs 02/16/18 14:47 02/16/18 20:00 02/16/18 23:33 Temperature 98.3 F 98.5 F 98.6 F Pulse Rate 83 81 76 Respiratory Rate 12 15 16 Blood Pressure 127/59 L 125/60 137/71 Pulse Oximetry 96 96 95 02/17/18 04:00 02/17/18 07:42 02/17/18 12:00 Temperature 98.7 F 98.4 F 98.5 F Pulse Rate 78 78 75 Respiratory Rate 15 16 16 Blood Pressure 121/62 132/69 126/65 Pulse Oximetry 96 97 96 Intake & Output 02/16/18 02/17/18 02/17/18 18:59 06:59 18:59 Intake Total 1000 / 1000 1999 / 1999 1000 / 1000 Balance 1000 / 1000 1999 / 1999 1000 / 1000 Intake: IV 1000 / 1000 1999 / 1999 1000 / 1000 NS Inj 1,000 ML @ 125 mls/hr IV 1000 / 1000 1999 / 1999 1000 / 1000 .CONT .Q8H [facility] Rx#:[id number] Other: Date of Last Bowel Movement 02/16/18 02/16/18 02/17/18 # Bowel Movements 1 - Constitutional no acute distress - Routine HEENT Exam Head: Present: normocephalic Eye: Present: conjunctival icterus - Routine Respiratory Exam Present: CTA bilaterally. Absent: accessory muscle use - Routine Cardiovascular Exam Present: RRR - Routine Abdominal Exam Present: soft, normoactive bowel sounds, distended. Absent: tenderness, guarding, firm - Routine Skin Exam Present: dry, warm - Routine Neurological Exam Present: alert - Routine Psychiatric Exam Present: normal affect, cooperative Results - Labs CBC & Chem 7: 02/17/18 04:58 02/17/18 04:58 Laboratory Results - last 24 hr 02/16/18 02/16/18 02/17/18 13:10 13:16 04:58 WBC RBC Hgb Hct MCV MCH MCHC RDW Plt Count MPV Prelim Diff (Auto) Neut % (Auto) Lymph % (Auto) [place] % (Auto) Eos % (Auto) Baso % (Auto) Neut # (Auto) Lymph # (Auto) [place] # (Auto) Eos # (Auto) Baso # (Auto) WBC Differential Seg Neuts % (Manual) Band Neuts % (Manual) Lymphocytes % (Manual) Monocytes % (Manual) Eosinophils % (Manual) Basophils % (Manual) Abs Neuts (Manual) Differential Comment Platelet Estimate Platelet Morphology [place] Cells Acanthocytes (Spur) Keratocytes Smear Path Review PT INR APTT 40.0 H PT Normal Plasma Immed 10.4 PT Normal Plasma 1 Hr 10.5 PT Pat/Norm 1:4 Immed 10.7 PT Pat/Norm 1:1 Immed 12.0 H PT Pat/Norm 1:1 1h 37c 12.6 H PT Pat/Norm 4:1 Immed 15.1 H PT Patient Plasma Immed 22.7 H PT Mix Interpretation PTT Normal Plasma Immed 24.7 PTT Normal Plasma 1 Hr 26.3 PTT Pat/Norm 1:4 Immed 24.7 PTT Pat/Norm 1:1 Immed 25.6 PTT Pat/Norm 1:1 1h 37c 27.5 PTT Pat/Norm 4:1 Immed 30.5 H PTT Patient Plsma Immed 40.4 H PTT Mix Interpretation Factor Inhibitor Screen Sodium Potassium Chloride Carbon Dioxide Anion Gap BUN Creatinine Estimated GFR Random Glucose Calcium Total Bilirubin AST ALT Alkaline Phosphatase Total Protein Albumin Lipase Blood Type Blood Bank Comment 02/17/18 02/17/18 02/17/18 04:58 04:58 04:58 WBC 10.6 RBC 2.26 L Hgb 8.7 L Hct 24.8 L MCV 110.0 H MCH 38.5 H MCHC 35.0 RDW 16.5 Plt Count 136 L MPV 7.5 Prelim Diff (Auto) Slide review pending Neut % (Auto) 78.4 H Lymph % (Auto) 11.0 [place] % (Auto) 7.8 Eos % (Auto) 2.3 Baso % (Auto) 0.5 Neut # (Auto) 8.3 H Lymph # (Auto) 1.2 [place] # (Auto) 0.8 Eos # (Auto) 0.2 Baso # (Auto) 0.0 WBC Differential Manual diff final Seg Neuts % (Manual) 74 H Band Neuts % (Manual) 12 H Lymphocytes % (Manual) 7 L Monocytes % (Manual) 4 Eosinophils % (Manual) 2 Basophils % (Manual) 1 Abs Neuts (Manual) 9.1 H Differential Comment . Platelet Estimate Low L Platelet Morphology Normal Bin Cells 1+ H Acanthocytes (Spur) Occ H Keratocytes Occ H Smear Path Review PT 20.9 H INR 2.1 APTT 42.4 H PT Normal Plasma Immed PT Normal Plasma 1 Hr PT Pat/Norm 1:4 Immed PT Pat/Norm 1:1 Immed PT Pat/Norm 1:1 1h 37c PT Pat/Norm 4:1 Immed PT Patient Plasma Immed PT Mix Interpretation PTT Normal Plasma Immed PTT Normal Plasma 1 Hr PTT Pat/Norm 1:4 Immed PTT Pat/Norm 1:1 Immed PTT Pat/Norm 1:1 1h 37c PTT Pat/Norm 4:1 Immed PTT Patient Plsma Immed PTT Mix Interpretation Factor Inhibitor Screen Sodium 137 Potassium 3.5 D Chloride 104 Carbon Dioxide 22.8 Anion Gap 10 BUN 12 Creatinine 0.99 Estimated GFR 88 L Random Glucose 112 H Calcium 7.5 L Total Bilirubin 21.0 H AST 106 H ALT 46 Alkaline Phosphatase 135 H Total Protein 6.1 L Albumin 1.6 L Lipase 671 H Blood Type Blood Bank Comment 02/17/18 12:15 WBC RBC Hgb Hct MCV MCH MCHC RDW Plt Count MPV Prelim Diff (Auto) Neut % (Auto) Lymph % (Auto) [place] % (Auto) Eos % (Auto) Baso % (Auto) Neut # (Auto) Lymph # (Auto) [place] # (Auto) Eos # (Auto) Baso # (Auto) WBC Differential Seg Neuts % (Manual) Band Neuts % (Manual) Lymphocytes % (Manual) Monocytes % (Manual) Eosinophils % (Manual) Basophils % (Manual) Abs Neuts (Manual) Differential Comment Platelet Estimate Platelet Morphology [place] Cells Acanthocytes (Spur) Keratocytes Smear Path Review PT INR APTT PT Normal Plasma Immed PT Normal Plasma 1 Hr PT Pat/Norm 1:4 Immed PT Pat/Norm 1:1 Immed PT Pat/Norm 1:1 1h 37c PT Pat/Norm 4:1 Immed PT Patient Plasma Immed PT Mix Interpretation PTT Normal Plasma Immed PTT Normal Plasma 1 Hr PTT Pat/Norm 1:4 Immed PTT Pat/Norm 1:1 Immed PTT Pat/Norm 1:1 1h 37c PTT Pat/Norm 4:1 Immed PTT Patient Plsma Immed PTT Mix Interpretation Factor Inhibitor Screen Sodium Potassium Chloride Carbon Dioxide Anion Gap BUN Creatinine Estimated GFR Random Glucose Calcium Total Bilirubin AST ALT Alkaline Phosphatase Total Protein Albumin Lipase Blood Type A Positive Blood Bank Comment Assessment and Plan (1) Pancreatitis Status: Acute Code(s): K85.90 - Acute pancreatitis without necrosis or infection, unspecified (2) Cirrhosis of liver Status: Acute Code(s): K74.60 - Unspecified cirrhosis of liver - Plan 02/17/2018 Anemia /hyperbilirubinemia /transaminitis-likely related to cirrhosis total bilirubin 21 AST 106 ALT 46 alk phos 135 Coagulopathy-INR 2.1, continue vitamin K p.o. daily. Planned paracentesis when INR within range Pancreatitis-lipase 671 trending down Edema/ascites-Lasix 40 mg p.o. daily, spironolactone 50 mg p.o. daily Plan -Diet as [id number] -Continue diuretics-Lasix and spironolactone -Continue vitamin K p.o. daily-noted FFP infusion ordered to correct INR -Continue lactulose, Xifaxan and zinc -Monitor ammonia level -Monitor liver function tests -Monitor lipase -Paracentesis when INR within range -Alcohol cessation -Supportive care -Further recommendations to follow This patient has been seen by myself and Dr. Peña and this note is written on his behalf - Attending Attestation Dr. Peña (1) Pancreatitis Qualifiers: Chronicity: acute Pancreatitis type: unspecified pancreatitis type Acute pancreatitis complication: unspecified Qualified Code(s): K85.90 - Acute pancreatitis without necrosis or infection, unspecified (2) Cirrhosis of liver Qualifiers: Hepatic cirrhosis type: alcoholic cirrhosis Ascites presence: with ascites Qualified Code(s): K70.31 - Alcoholic cirrhosis of liver with ascites
--- NOTE | 2018-02-17 14:55 | US ---
EXAM DATE: 02/17/2018 2:45 PM EDT AGE/SEX: 32 years / Male INDICATIONS: Ascites. CLINICAL DATA: This is the patient's subsequent encounter. Patient reports that signs and symptoms h ave been present for 3 days and indicates a pain score of 4/10. MEDICAL/SURGICAL HISTORY: Cirrhosis. Pancreatitis. . Esophagogastroduodenoscopy (EGD). [place] [facility] [place]EL[place], 02/14/2018. . FLUID: Total volume of 2600 cc of clear, yellow fluid was removed. Fluid was sent to lab for ordered studies . TECHNIQUE: Ultrasound guidance for abdominal paracentesis. Paracentesis. The risks, benefits, and alternatives to ultrasound guided paracentesis were explained to the patient in detail including the risk of bleeding and infection. Written and verbal informed consent was obt ained. With the patient on the ultrasound table, ultrasound imaging was used to select the most appropriate approach for paracentesis. Overlying skin was prepped and draped in the usual sterile fashion and wi th a local anesthetic, a dermatotomy was made with an 11 blade scalpel. A 6 [place] Kyl-[id number] ca theter was introduced into the peritoneal cavity and fluid was collected. Post procedure scanning reveals no hematoma or other complication. The patient tolerated the procedu re well and left the ultrasound suite in stable condition. CONCLUSION: 1. Uncomplicated paracentesis. Electronically signed by: Francis Izaguirre MD 02/17/2018 2:54 PM EDT
[2018-02-17 16:32] LABS: Neutrophils,Peritoneal Fluid 19 %; RBC,Peritoneal Fluid 263 /mm3 (0-0)
--- NOTE | 2018-02-17 21:49 | P.PNONC ---
Subjective Interval history: Resting comfortably in bed in no distress. Improved after paracentesis today. Objective Vital Signs/Intake & Output: Vital Signs 02/16/18 23:33 02/17/18 04:00 02/17/18 07:42 Temperature 98.6 F 98.7 F 98.4 F Pulse Rate 76 78 78 Respiratory Rate 16 15 16 Blood Pressure 137/71 121/62 132/69 Pulse Oximetry 95 96 97 02/17/18 12:00 02/17/18 13:26 02/17/18 14:35 Temperature 98.5 F 98.9 F 99.2 F Pulse Rate 75 80 84 Respiratory Rate 16 16 18 Blood Pressure 126/65 137/70 126/69 Pulse Oximetry 96 94 L 94 L 02/17/18 14:45 02/17/18 15:53 02/17/18 18:25 Temperature 98.8 F 99 F Pulse Rate 82 80 78 Respiratory Rate 18 16 20 Blood Pressure 139/66 126/65 128/66 Pulse Oximetry 94 L 98 95 02/17/18 20:00 Temperature 97.9 F Pulse Rate 78 Respiratory Rate 15 Blood Pressure 139/71 Pulse Oximetry 99 Intake & Output 02/17/18 02/17/18 02/18/18 06:59 18:59 06:59 Intake Total 1999 2715 / 2715 Balance 1999 2715 / 2715 Intake: IV 1999 1000 / 1000 NS Inj 1,000 ML @ 125 mls/hr IV 1999 1000 / 1000 .CONT .Q8H [facility] Rx#:[id number] Oral 240 / 240 Other 1475 / 1475 Other: Other Intake Source Saline Solution # Voids 0 Date of Last Bowel Movement 02/16/18 02/17/18 # Bowel Movements 0 Result Diagrams: 02/17/18 04:58 02/17/18 04:58 Laboratory Results: Laboratory Results - last 24 hr 02/16/18 02/17/18 02/17/18 13:10 04:58 04:58 WBC 10.6 RBC 2.26 L Hgb 8.7 L Hct 24.8 L MCV 110.0 H MCH 38.5 H MCHC 35.0 RDW 16.5 Plt Count 136 L MPV 7.5 Prelim Diff (Auto) Slide review pending Neut % (Auto) 78.4 H Lymph % (Auto) 11.0 [place] % (Auto) 7.8 Eos % (Auto) 2.3 Baso % (Auto) 0.5 Neut # (Auto) 8.3 H Lymph # (Auto) 1.2 [place] # (Auto) 0.8 Eos # (Auto) 0.2 Baso # (Auto) 0.0 WBC Differential Manual diff final Seg Neuts % (Manual) 74 H Band Neuts % (Manual) 12 H Lymphocytes % (Manual) 7 L Monocytes % (Manual) 4 Eosinophils % (Manual) 2 Basophils % (Manual) 1 Abs Neuts (Manual) 9.1 H Differential Comment . Platelet Estimate Low L Platelet Morphology Normal Bin Cells 1+ H Acanthocytes (Spur) Occ H Keratocytes Occ H Smear Path Review PT INR APTT PT Normal Plasma Immed 10.4 PT Normal Plasma 1 Hr 10.5 PT Pat/Norm 1:4 Immed 10.7 PT Pat/Norm 1:1 Immed 12.0 H PT Pat/Norm 1:1 1h 37c 12.6 H PT Pat/Norm 4:1 Immed 15.1 H PT Patient Plasma Immed 22.7 H PT Mix Interpretation PTT Normal Plasma Immed 24.7 PTT Normal Plasma 1 Hr 26.3 PTT Pat/Norm 1:4 Immed 24.7 PTT Pat/Norm 1:1 Immed 25.6 PTT Pat/Norm 1:1 1h 37c 27.5 PTT Pat/Norm 4:1 Immed 30.5 H PTT Patient Plsma Immed 40.4 H PTT Mix Interpretation Factor Inhibitor Screen Sodium Potassium Chloride Carbon Dioxide Anion Gap BUN Creatinine Estimated GFR Random Glucose Calcium Total Bilirubin AST ALT Alkaline Phosphatase Total Protein Albumin Lipase Peritoneal RBC Periton Nuc Cells Periton Neutrophils Periton Lymphocytes Periton Histiocytes Peritoneal Albumin Blood Type Blood Bank Comment 02/17/18 02/17/18 02/17/18 04:58 04:58 12:15 WBC RBC Hgb Hct MCV MCH MCHC RDW Plt Count MPV Prelim Diff (Auto) Neut % (Auto) Lymph % (Auto) [place] % (Auto) Eos % (Auto) Baso % (Auto) Neut # (Auto) Lymph # (Auto) [place] # (Auto) Eos # (Auto) Baso # (Auto) WBC Differential Seg Neuts % (Manual) Band Neuts % (Manual) Lymphocytes % (Manual) Monocytes % (Manual) Eosinophils % (Manual) Basophils % (Manual) Abs Neuts (Manual) Differential Comment Platelet Estimate Platelet Morphology [place] Cells Acanthocytes (Spur) Keratocytes Smear Path Review PT 20.9 H INR 2.1 APTT 42.4 H PT Normal Plasma Immed PT Normal Plasma 1 Hr PT Pat/Norm 1:4 Immed PT Pat/Norm 1:1 Immed PT Pat/Norm 1:1 1h 37c PT Pat/Norm 4:1 Immed PT Patient Plasma Immed PT Mix Interpretation PTT Normal Plasma Immed PTT Normal Plasma 1 Hr PTT Pat/Norm 1:4 Immed PTT Pat/Norm 1:1 Immed PTT Pat/Norm 1:1 1h 37c PTT Pat/Norm 4:1 Immed PTT Patient Plsma Immed PTT Mix Interpretation Factor Inhibitor Screen Sodium 137 Potassium 3.5 D Chloride 104 Carbon Dioxide 22.8 Anion Gap 10 BUN 12 Creatinine 0.99 Estimated GFR 88 L Random Glucose 112 H Calcium 7.5 L Total Bilirubin 21.0 H AST 106 H ALT 46 Alkaline Phosphatase 135 H Total Protein 6.1 L Albumin 1.6 L Lipase 671 H Peritoneal RBC Periton Nuc Cells Periton Neutrophils Periton Lymphocytes Periton Histiocytes Peritoneal Albumin Blood Type A Positive Blood Bank Comment 02/17/18 02/17/18 14:10 14:10 WBC RBC Hgb Hct MCV MCH MCHC RDW Plt Count MPV Prelim Diff (Auto) Neut % (Auto) Lymph % (Auto) [place] % (Auto) Eos % (Auto) Baso % (Auto) Neut # (Auto) Lymph # (Auto) [place] # (Auto) Eos # (Auto) Baso # (Auto) WBC Differential Seg Neuts % (Manual) Band Neuts % (Manual) Lymphocytes % (Manual) Monocytes % (Manual) Eosinophils % (Manual) Basophils % (Manual) Abs Neuts (Manual) Differential Comment Platelet Estimate Platelet Morphology Bin Cells Acanthocytes (Spur) Keratocytes Smear Path Review PT INR APTT PT Normal Plasma Immed PT Normal Plasma 1 Hr PT Pat/Norm 1:4 Immed PT Pat/Norm 1:1 Immed PT Pat/Norm 1:1 1h 37c PT Pat/Norm 4:1 Immed PT Patient Plasma Immed PT Mix Interpretation PTT Normal Plasma Immed PTT Normal Plasma 1 Hr PTT Pat/Norm 1:4 Immed PTT Pat/Norm 1:1 Immed PTT Pat/Norm 1:1 1h 37c PTT Pat/Norm 4:1 Immed PTT Patient Plsma Immed PTT Mix Interpretation Factor Inhibitor Screen Sodium Potassium Chloride Carbon Dioxide Anion Gap BUN Creatinine Estimated GFR Random Glucose Calcium Total Bilirubin AST ALT Alkaline Phosphatase Total Protein Albumin Lipase Peritoneal RBC 263 H Periton Nuc Cells 113 H Periton Neutrophils 19 Periton Lymphocytes 59 Periton Histiocytes 22 Peritoneal Albumin 0.2 Blood Type Blood Bank Comment Imaging Studies: Impressions Paracentesis Ultrasound 02/17/18 00:00 CONCLUSION: 1. Uncomplicated paracentesis. Medications: Active Medications Generic Name Dose Route Start Last Admin Trade Name Freq PRN Reason Stop Dose Admin Diphenhydramine HCl 25 mg 02/15/18 22:30 02/17/18 15:47 Benadryl PO 25 mg Q6H PRN Administration ITCHING Furosemide 40 mg 02/16/18 11:00 02/17/18 08:29 Lasix PO 40 mg DAILY [facility] Administration Sodium Chloride 1,000 mls @ 125 mls/hr 02/15/18 06:15 02/17/18 15:30 Ns Inj IV.CONT 125 mls/hr .Q8H [facility] Infusion Sodium Chloride 250 mls @ 15 mls/hr 02/17/18 12:00 02/17/18 13:38 Ns Inj IV.SIG 02/18/18 04:39 Not Given ONCE [facility] Lactulose 30 ml 02/16/18 09:00 02/17/18 08:28 Lactulose Liq PO 30 ml DAILY [facility] Administration Magnesium Oxide 400 mg 02/15/18 09:00 02/17/18 08:29 Mag-Ox PO 400 mg DAILY [facility] Administration Morphine Sulfate 2 mg 02/15/18 03:17 02/17/18 18:51 Morphine Inj IV.PUSH 2 mg Q3H PRN Administration pain 1 to 10 Ondansetron HCl 4 mg 02/15/18 06:06 02/17/18 08:37 Zofran Odt PO 4 mg Q6H PRN Administration NAUSEA OR VOMITING Ondansetron HCl 4 mg 02/15/18 06:06 02/16/18 20:51 Zofran Inj IV.PUSH 4 mg Q6H PRN Administration NAUSEA OR VOMITING Phytonadione 5 mg 02/15/18 09:00 02/17/18 08:29 Mephyton Liq PO 5 mg DAILY [facility] Administration Rifaximin 550 mg 02/16/18 11:15 02/17/18 08:28 Xifaxan PO 550 mg Q12HR [facility] Administration Spironolactone 50 mg 02/16/18 11:00 02/17/18 08:29 Aldactone PO 50 mg DAILY [facility] Administration Zinc Sulfate 220 mg 02/15/18 09:00 02/17/18 08:29 Zinc-220 PO 220 mg DAILY [facility] Administration Objective Remarks: GENERAL: Well-nourished, well-developed patient. SKIN: Warm and dry. HEAD: Normocephalic. EYES: No scleral icterus. No injection or drainage. NECK: Supple, trachea midline. No JVD or lymphadenopathy. RESPIRATORY: No accessory muscle use. GASTROINTESTINAL: non distended EXTREMITIES: No cyanosis, or edema. MUSCULOSKELETAL: Adequate muscle tone. NEUROLOGICAL: No obvious focal deficit. Awake, alert, and oriented x3. Assessment/Plan - Plan 1. Coagulopathy: prolongation of PT, PTT low fibrinogen. Likely secondary to known liver disease as coagulation factors are synthesized in the liver. Mixing study with correction. He is currently on vitamin K replacement with no improvement in laboratory studies. Will check factor V, factor X levels.
[2018-02-18] MEDS: Morphine Inj 4 MG/ML Vial IV.PUSH PRN ×2 (05:19→08:51)
[2018-02-18 05:39] LABS: Baso # (Auto) 0.1 th/mm3 (0.0-0.2); Baso % (Auto) 0.6 % (0.0-2.0); Eos # (Auto) 0.2 th/mm3 (0.0-0.4); Eos % (Auto) 2.1 % (0.0-4.0); Hematocrit 24.8 % (39.0-51.0); Hemoglobin 8.6 gm/dL (13.0-17.0); Lymph # (Auto) 1.4 th/mm3 (1.0-4.8); Lymph % (Auto) 14.4 % (9.0-44.0); Mean Corpuscular HGB Conc 34.9 % (32.0-36.0); Mean Corpuscular Hemoglobin 38.1 pg (27.0-34.0); Mean Corpuscular Volume 109.2 fL (80.0-100.0); Mean Platelet Volume 7.4 fL (7.0-11.0); Mono # (Auto) 0.8 th/mm3 (0.0-0.9); Neut # (Auto) 6.9 th/mm3 (1.8-7.7); Neut % (Auto) 73.9 % (16.0-70.0); Platelet Count 132 th/mm3 (150-450); Red Blood Count 2.27 mil/mm3 (4.50-5.90); Red Cell Distribution Width 16.7 % (11.6-17.2); White Blood Count 9.4 th/mm3 (4.0-11.0)
[2018-02-18 05:45] LABS: Activated Partial Thrombo Time 44.1 sec (23.4-31.7); INR 2.3 Ratio; Prothrombin Time 22.8 sec (9.8-11.6)
[2018-02-18 06:11] LABS: Alanine Aminotransferase 47 U/L (12-78); Albumin 1.5 g/dL (3.4-5.0); Alkaline Phosphatase 149 U/L (45-117); Anion Gap 9 meq/L (5-15); Aspartate Aminotransferase 109 U/L (15-37); Blood Urea Nitrogen 8 mg/dL (7-18); Calcium 7.6 mg/dL (8.5-10.1); Carbon Dioxide 24.5 meq/L (21.0-32.0); Chloride 106 meq/L (98-107); Glomerular Filtration Rate Greater Than 89 mL/min (>89); Glucose,Random 89 mg/dL (74-106); Lipase 969 U/L (73-393); Potassium 3.6 meq/L (3.5-5.1); Sodium 139 meq/L (136-145); Total Protein 5.9 g/dL (6.4-8.2)
[2018-02-18] MEDS: Sod Chloride 0.9% Inj 1,000 ML IV.CONT SCH ×2 (06:38→15:38)
[2018-02-18 08:11] LABS: Acanthocytes 1+; Burr Cells 1+; Platelet Morphology Normal (Normal)
[2018-02-18] MEDS: Magnesium Oxide 400 MG Tablet PO SCH (08:50)
[2018-02-18] MEDS: Phytonadione 5 MG/SWFI 5 ML Oral Syringe PO SCH (08:50)
[2018-02-18] MEDS: Spironolactone 50 MG Tablet PO SCH (08:51)
[2018-02-18] MEDS: rifAXIMin 550 MG Tablet PO SCH (08:51)
[2018-02-18] MEDS: Furosemide 40 MG Tablet PO SCH (08:51)
--- NOTE | 2018-02-18 11:48 | P.DS ---
Date of admission: 02/15/18 00:19 Primary care physician: Kathi Primary Care Physician Attending physician on discharge: Shon Segundo Anticipated date of discharge: 02/18/18 Brief History from admission: 32-year-old male with a 3-year history of alcoholic cirrhosis, subsequent diagnosis of esophageal varices status post banding, recent inpatient treatment for pancreatitis at [facility], discharged 2 days ago. He presents with a 1 day history of progressively worsening constant sharp epigastric pain radiating to back, nausea with bilious vomiting. He denies any fevers, however says he frequently feels chilled. He also reports worsening swelling in his abdomen. He says he was going to go back to [facility], however wanted to come here to see if we can give him a second opinion. Patient says he quit drinking about a month ago Patient update on day of discharge: Patient is doing well. Tolerating diet well. Ambulating well. He wants to take a shower. Discussed with hematology and GI -patient can be discharged. DS: Medications - Discharge Medications Prescriptions: furosemide 40 mg PO DAILY #30 tab hydrocodone-acetaminophen [[place]] 1 tab PO Q6H #12 tab lactulose 30 ml PO DAILY PRN 30 Days ml PRN Reason: Constipation phytonadione (vitamin K1) [Vitamin K1] 5 mg PO DAILY 30 Days #15 ml prednisolone sodium phosphate 40 mg PO DAILY 28 Days #373.24 ml propranolol 20 mg PO BID 30 Days #60 tab spironolactone 100 mg PO DAILY 30 Days #60 tab DS: Summary Hospital Course: On 02/15/2018, Mr. Quijano a 32-year-old male with a history of alcoholic liver cirrhosis, esophageal varices status post banding who presented to the emergency department due to epigastric pain radiating to his back, nausea with bilious vomiting. Hematology was consulted for coagulopathy. GI was consulted for liver cirrhosis as well as ascites. Patient underwent paracentesis on 2017. Post paracentesis, patient continued to do well. He did not have any bleeding episodes. He did not require any FFP's. I discussed with patient at length regarding his cirrhosis management with Lasix and spironolactone. We will continue Lasix 40 mg daily as well as spironolactone 100 mg p.o. daily. I also advised patient to take lactulose to obtain 2-3 loose bowel movements a day. We will also provide prescription for liquid vitamin K 5 mg daily. We also provided patient a prescription for propranolol 20 mg twice daily for prophylaxis for variceal bleed. Patient is strongly advised to continue abstinence from alcohol. Patient is motivated. He is also encouraged to follow -up with his PCP as well as GI doctor. We prescribed 3 days of [place] 5/325. Acetaminophen to limit 2000 mg per 24 hours. [place] database checked. Last Narcotic pain med filled in 10/2017. - Time Spent with Patient Total time spent providing and/or coordinating discharge services: Greater than 30 minutes - Quality: VTE Deep Vein Thrombosis/Pulmonary Embolism Present on Admission: No Exam Vital signs: Vital Signs 02/17/18 12:00 02/17/18 13:26 02/17/18 14:35 Temperature 98.5 F 98.9 F 99.2 F Pulse Rate 75 80 84 Respiratory Rate 16 16 18 Blood Pressure 126/65 137/70 126/69 Pulse Oximetry 96 94 L 94 L 02/17/18 14:45 02/17/18 15:53 02/17/18 18:25 Temperature 98.8 F 99 F Pulse Rate 82 80 78 Respiratory Rate 18 16 20 Blood Pressure 139/66 126/65 128/66 Pulse Oximetry 94 L 98 95 02/17/18 20:00 02/18/18 00:00 02/18/18 04:00 Temperature 97.9 F 97.9 F 97.9 F Pulse Rate 78 75 82 Respiratory Rate 15 16 16 Blood Pressure 139/71 138/70 130/62 Pulse Oximetry 99 98 96 02/18/18 08:00 Temperature 98.6 F Pulse Rate 78 Respiratory Rate 16 Blood Pressure 132/69 Pulse Oximetry 97 Intake & Output 02/17/18 02/18/18 02/18/18 18:59 06:59 18:59 Intake Total 2715 / 2715 1500 / 1500 Output Total 350 / 350 Balance 2715 / 2715 1150 / 1150 Weight 74.9 kg Intake: IV 1000 / 1000 1000 / 1000 NS Inj 1,000 ML @ 125 mls/hr IV 1000 / 1000 1000 / 1000 .CONT .Q8H [facility] Rx#:[id number] Oral 240 / 240 500 / 500 Other 1475 / 1475 Output: Urine 350 / 350 Other: Other Intake Source Saline Solution # Voids 0 Date of Last Bowel Movement 02/17/18 02/17/18 02/18/18 # Bowel Movements 0 Narrative: GENERAL: Alert, Oriented x 3, NAD. SKIN: Warm and dry. HEAD: Normocephalic. EYES: No scleral icterus. No injection or drainage. NECK: Supple, trachea midline. No JVD or lymphadenopathy. CARDIOVASCULAR: Regular rate and rhythm without murmurs, gallops, or rubs. RESPIRATORY: Breath sounds equal bilaterally. No accessory muscle use. GASTROINTESTINAL: Abdomen soft, non-tender, nondistended. MUSCULOSKELETAL: No cyanosis. Lower ext 1+ edema. BACK: Nontender without obvious deformity. No CVA tenderness. Results Procedures completed during hospitalization: Paracentesis Labs on day of discharge: Labs from last 24 hours 02/18/18 02/18/18 02/18/18 05:17 05:17 05:17 WBC 9.4 RBC 2.27 L Hgb 8.6 L Hct 24.8 L MCV 109.2 H MCH 38.1 H MCHC 34.9 RDW 16.7 Plt Count 132 L MPV 7.4 Prelim Diff (Auto) Slide review pending Neut % (Auto) 73.9 H Lymph % (Auto) 14.4 [place] % (Auto) 9.0 H Eos % (Auto) 2.1 Baso % (Auto) 0.6 Neut # (Auto) 6.9 Lymph # (Auto) 1.4 [place] # (Auto) 0.8 Eos # (Auto) 0.2 Baso # (Auto) 0.1 WBC Differential . Diff Scan Auto diff confirmed Differential Comment . Platelet Estimate Low L Platelet Morphology Normal Bin Cells 1+ H Acanthocytes (Spur) 1+ H Keratocytes Occ H PT 22.8 H INR 2.3 APTT 44.1 H Sodium 139 Potassium 3.6 Chloride 106 Carbon Dioxide 24.5 Anion Gap 9 BUN 8 Creatinine 0.87 Estimated GFR Greater than 89 Random Glucose 89 Calcium 7.6 L Total Bilirubin 20.2 H AST 109 H ALT 47 Alkaline Phosphatase 149 H Total Protein 5.9 L Albumin 1.5 L Lipase 969 H Peritoneal RBC Periton Nuc Cells Periton Neutrophils Periton Lymphocytes Periton Histiocytes Peritoneal Albumin Blood Type Blood Bank Comment 02/17/18 02/17/18 02/17/18 14:10 14:10 12:15 WBC RBC Hgb Hct MCV MCH MCHC RDW Plt Count MPV Prelim Diff (Auto) Neut % (Auto) Lymph % (Auto) [place] % (Auto) Eos % (Auto) Baso % (Auto) Neut # (Auto) Lymph # (Auto) [place] # (Auto) Eos # (Auto) Baso # (Auto) WBC Differential Diff Scan Differential Comment Platelet Estimate Platelet Morphology Bin Cells Acanthocytes (Spur) Keratocytes PT INR APTT Sodium Potassium Chloride Carbon Dioxide Anion Gap BUN Creatinine Estimated GFR Random Glucose Calcium Total Bilirubin AST ALT Alkaline Phosphatase Total Protein Albumin Lipase Peritoneal RBC 263 H Periton Nuc Cells 113 H Periton Neutrophils 19 Periton Lymphocytes 59 Periton Histiocytes 22 Peritoneal Albumin 0.2 Blood Type A Positive Blood Bank Comment - Impressions ITS Impressions Abdomen/Pelvis CT 02/14/18 21:47 CONCLUSION: 1. CT findings of the liver consistent with nonspecific hepatocellular disease. No perceptible donato cirrhotic changes. 2. Possible recanalized portal vein. No acute portal vein thrombosis. 3. Portosystemic collaterals, massive splenomegaly and small to moderate ascites. 4. No focal hepatic or splenic lesion seen. Paracentesis Ultrasound 02/17/18 00:00 CONCLUSION: 1. Uncomplicated paracentesis. Discharge Plan - Discharge Disposition Patient Disposition: Discharge Home - Discharge Condition Condition: Stable - Discharge Order Discharge Orders: Discharge Order (Routine); Ordered 02/18/18 Ordered By: Shon Segundo - Discharge Details Anticipated Discharge Date: 02/18/18 - Physicians Team Primary Care Provider: Primary Care Aureliano,Kathi Attending Provider: Shon Segundo Other Providers: Meme Edwards ; Lj Peña MD
[2018-02-18] MEDS ORDERED: prednisoLONE (Alcohol Free) Liq 15 MG/5 ML Oral Syringe PO SCH (12:00)
--- NOTE | 2018-02-18 15:38 | P.PNGI ---
Subjective Interval history: Patient laying supine in bed, reports less discomfort since paracentesis <KamranDaniela - Last Filed: 02/18/18 15:30> Physical Exam Vital signs: Vital Signs 02/17/18 15:53 02/17/18 18:25 02/17/18 20:00 Temperature 99 F 97.9 F Pulse Rate 80 78 78 Respiratory Rate 16 20 15 Blood Pressure 126/65 128/66 139/71 Pulse Oximetry 98 95 99 02/18/18 00:00 02/18/18 04:00 02/18/18 08:00 Temperature 97.9 F 97.9 F 98.6 F Pulse Rate 75 82 78 Respiratory Rate 16 16 16 Blood Pressure 138/70 130/62 132/69 Pulse Oximetry 98 96 97 02/18/18 12:00 Temperature 98.3 F Pulse Rate 87 Respiratory Rate 16 Blood Pressure 140/76 Pulse Oximetry 98 Intake & Output 02/17/18 02/18/18 02/18/18 18:59 06:59 18:59 Intake Total 2715 / 2715 1500 / 1500 Output Total 350 / 350 Balance 2715 / 2715 1150 / 1150 Weight 74.9 kg Intake: IV 1000 / 1000 1000 / 1000 NS Inj 1,000 ML @ 125 mls/hr IV 1000 / 1000 1000 / 1000 .CONT .Q8H [facility] Rx#:[id number] Oral 240 / 240 500 / 500 Other 1475 / 1475 Output: Urine 350 / 350 Other: Other Intake Source Saline Solution # Voids 0 Date of Last Bowel Movement 02/17/18 02/17/18 02/18/18 # Bowel Movements 0 - Constitutional no acute distress - Routine HEENT Exam Head: Present: normocephalic - Routine Respiratory Exam Present: CTA bilaterally. Absent: accessory muscle use - Routine Cardiovascular Exam Present: RRR - Routine Abdominal Exam Present: soft, normoactive bowel sounds, distended. Absent: tenderness, guarding, firm, rigid - Routine Skin Exam Present: dry, warm - Routine Neurological Exam Present: alert, oriented X3 - Routine Psychiatric Exam Present: normal affect, cooperative <KamranDaniela - Last Filed: 02/18/18 15:30> Vital signs: Vital Signs 02/17/18 15:53 02/17/18 18:25 02/17/18 20:00 Temperature 99 F 97.9 F Pulse Rate 80 78 78 Respiratory Rate 16 20 15 Blood Pressure 126/65 128/66 139/71 Pulse Oximetry 98 95 99 02/18/18 00:00 02/18/18 04:00 02/18/18 08:00 Temperature 97.9 F 97.9 F 98.6 F Pulse Rate 75 82 78 Respiratory Rate 16 16 16 Blood Pressure 138/70 130/62 132/69 Pulse Oximetry 98 96 97 02/18/18 12:00 Temperature 98.3 F Pulse Rate 87 Respiratory Rate 16 Blood Pressure 140/76 Pulse Oximetry 98 Intake & Output 02/17/18 02/18/18 02/18/18 18:59 06:59 18:59 Intake Total 2715 / 2715 1500 / 1500 1000 / 1000 Output Total 350 / 350 Balance 2715 / 2715 1150 / 1150 1000 / 1000 Weight 74.9 kg Intake: IV 1000 / 1000 1000 / 1000 1000 / 1000 NS Inj 1,000 ML @ 125 mls/hr IV 1000 / 1000 1000 / 1000 1000 / 1000 .CONT .Q8H [facility] Rx#:[id number] Oral 240 / 240 500 / 500 Other 1475 / 1475 Output: Urine 350 / 350 Other: Other Intake Source Saline Solution # Voids 0 Date of Last Bowel Movement 02/17/18 02/17/18 02/18/18 # Bowel Movements 0 <Rey Guevara E - Last Filed: 02/18/18 15:40> Results - Labs CBC & Chem 7: 02/18/18 05:17 02/18/18 05:17 Laboratory Results - last 24 hr 02/17/18 02/17/18 02/18/18 14:10 14:10 05:17 WBC 9.4 RBC 2.27 L Hgb 8.6 L Hct 24.8 L MCV 109.2 H MCH 38.1 H MCHC 34.9 RDW 16.7 Plt Count 132 L MPV 7.4 Prelim Diff (Auto) Slide review pending Neut % (Auto) 73.9 H Lymph % (Auto) 14.4 [place] % (Auto) 9.0 H Eos % (Auto) 2.1 Baso % (Auto) 0.6 Neut # (Auto) 6.9 Lymph # (Auto) 1.4 [place] # (Auto) 0.8 Eos # (Auto) 0.2 Baso # (Auto) 0.1 WBC Differential . Diff Scan Auto diff confirmed Differential Comment . Platelet Estimate Low L Platelet Morphology Normal [place] Cells 1+ H Acanthocytes (Spur) 1+ H Keratocytes Occ H PT INR APTT Sodium Potassium Chloride Carbon Dioxide Anion Gap BUN Creatinine Estimated GFR Random Glucose Calcium Total Bilirubin AST ALT Alkaline Phosphatase Total Protein Albumin Lipase Peritoneal RBC 263 H Periton Nuc Cells 113 H Periton Neutrophils 19 Periton Lymphocytes 59 Periton Histiocytes 22 Peritoneal Albumin 0.2 02/18/18 02/18/18 05:17 05:17 WBC RBC Hgb Hct MCV MCH MCHC RDW Plt Count MPV Prelim Diff (Auto) Neut % (Auto) Lymph % (Auto) [place] % (Auto) Eos % (Auto) Baso % (Auto) Neut # (Auto) Lymph # (Auto) [place] # (Auto) Eos # (Auto) Baso # (Auto) WBC Differential Diff Scan Differential Comment Platelet Estimate Platelet Morphology Bin Cells Acanthocytes (Spur) Keratocytes PT 22.8 H INR 2.3 APTT 44.1 H Sodium 139 Potassium 3.6 Chloride 106 Carbon Dioxide 24.5 Anion Gap 9 BUN 8 Creatinine 0.87 Estimated GFR Greater than 89 Random Glucose 89 Calcium 7.6 L Total Bilirubin 20.2 H AST 109 H ALT 47 Alkaline Phosphatase 149 H Total Protein 5.9 L Albumin 1.5 L Lipase 969 H Peritoneal RBC Periton Nuc Cells Periton Neutrophils Periton Lymphocytes Periton Histiocytes Peritoneal Albumin - Procedures Paracentesis <Daniela Andrew - Last Filed: 02/18/18 15:30> - Labs CBC & Chem 7: 02/18/18 05:17 02/18/18 05:17 Laboratory Results - last 24 hr 02/17/18 02/17/18 02/18/18 14:10 14:10 05:17 WBC 9.4 RBC 2.27 L Hgb 8.6 L Hct 24.8 L MCV 109.2 H MCH 38.1 H MCHC 34.9 RDW 16.7 Plt Count 132 L MPV 7.4 Prelim Diff (Auto) Slide review pending Neut % (Auto) 73.9 H Lymph % (Auto) 14.4 [place] % (Auto) 9.0 H Eos % (Auto) 2.1 Baso % (Auto) 0.6 Neut # (Auto) 6.9 Lymph # (Auto) 1.4 [place] # (Auto) 0.8 Eos # (Auto) 0.2 Baso # (Auto) 0.1 WBC Differential . Diff Scan Auto diff confirmed Differential Comment . Platelet Estimate Low L Platelet Morphology Normal Bin Cells 1+ H Acanthocytes (Spur) 1+ H Keratocytes Occ H PT INR APTT Sodium Potassium Chloride Carbon Dioxide Anion Gap BUN Creatinine Estimated GFR Random Glucose Calcium Total Bilirubin AST ALT Alkaline Phosphatase Total Protein Albumin Lipase Peritoneal RBC 263 H Periton Nuc Cells 113 H Periton Neutrophils 19 Periton Lymphocytes 59 Periton Histiocytes 22 Peritoneal Albumin 0.2 02/18/18 02/18/18 05:17 05:17 WBC RBC Hgb Hct MCV MCH MCHC RDW Plt Count MPV Prelim Diff (Auto) Neut % (Auto) Lymph % (Auto) [place] % (Auto) Eos % (Auto) Baso % (Auto) Neut # (Auto) Lymph # (Auto) [place] # (Auto) Eos # (Auto) Baso # (Auto) WBC Differential Diff Scan Differential Comment Platelet Estimate Platelet Morphology Bin Cells Acanthocytes (Spur) Keratocytes PT 22.8 H INR 2.3 APTT 44.1 H Sodium 139 Potassium 3.6 Chloride 106 Carbon Dioxide 24.5 Anion Gap 9 BUN 8 Creatinine 0.87 Estimated GFR Greater than 89 Random Glucose 89 Calcium 7.6 L Total Bilirubin 20.2 H AST 109 H ALT 47 Alkaline Phosphatase 149 H Total Protein 5.9 L Albumin 1.5 L Lipase 969 H Peritoneal RBC Periton Nuc Cells Periton Neutrophils Periton Lymphocytes Periton Histiocytes Peritoneal Albumin <Rey Guevara - Last Filed: 02/18/18 15:40> Assessment and Plan (1) Pancreatitis Status: Acute Code(s): K85.90 - Acute pancreatitis without necrosis or infection, unspecified (2) Cirrhosis of liver Status: Acute Code(s): K74.60 - Unspecified cirrhosis of liver - Plan 02/17/2018 Anemia /hyperbilirubinemia /transaminitis-likely related to cirrhosis total bilirubin 21 AST 106 ALT 46 alk phos 135 Coagulopathy-INR 2.1, continue vitamin K p.o. daily. Planned paracentesis when INR within range Pancreatitis-lipase 671 trending down Edema/ascites-Lasix 40 mg p.o. daily, spironolactone 50 mg p.o. daily 02/18/2018 Hemoglobin 8.6 hematocrit 24.8 patient denies any noted bleeding. Patient denies abdominal pain lipase 969, denies nausea or vomiting. Patient post paracentesis with removal of 2300 mL's of peritoneal fluid. Lasix 40 mg p.o. daily, spironolactone 50 mg p.o. daily Plan -Diet low-sodium -Continue diuretics-Lasix and spironolactone -Continue vitamin K p.o. -Continue lactulose and steroids -Alcohol cessation -Supportive care -Patient advised and agrees to follow-up with GI post discharge This patient has been seen by myself and Dr. Guevara and this note is written on his behalf - Attending Attestation Dr. Guevara <Daniela Andrew - Last Filed: 02/18/18 15:30> (1) Pancreatitis Status: Acute Code(s): K85.90 - Acute pancreatitis without necrosis or infection, unspecified (2) Cirrhosis of liver Status: Acute Code(s): K74.60 - Unspecified cirrhosis of liver - Plan Patient seen and examined Agree with above Monitor labs Continue with current supportive care Case discussed with attending physician okay for discharge from a GI standpoint patient's labs have been stable over the past 2-3 days Patient will need assistance at home Follow-up with GI with blood work in about a week Low-salt diet Continue with current medications Avoid alcohol <Rey Guevara E - Last Filed: 02/18/18 15:40> <Daniela Andrew - Last Filed: 02/18/18 15:30> (1) Pancreatitis Qualifiers: Chronicity: acute Pancreatitis type: unspecified pancreatitis type Acute pancreatitis complication: unspecified Qualified Code(s): K85.90 - Acute pancreatitis without necrosis or infection, unspecified (2) Cirrhosis of liver Qualifiers: Hepatic cirrhosis type: alcoholic cirrhosis Ascites presence: with ascites Qualified Code(s): K70.31 - Alcoholic cirrhosis of liver with ascites <Rey Guevara E - Last Filed: 02/18/18 15:40> (1) Pancreatitis Qualifiers: Chronicity: acute Pancreatitis type: unspecified pancreatitis type Acute pancreatitis complication: unspecified Qualified Code(s): K85.90 - Acute pancreatitis without necrosis or infection, unspecified (2) Cirrhosis of liver Qualifiers: Hepatic cirrhosis type: alcoholic cirrhosis Ascites presence: with ascites Qualified Code(s): K70.31 - Alcoholic cirrhosis of liver with ascites
== END 2018-02-18 19:23 | disposition home or self-care (01) ==
LOC: NEPE 19:46 → NEDA 02-15 00:19 → NEPFCDU 02-15 01:28 → NEDA 02-15 01:28 → N06 02-17 18:19
PROVIDERS: ADMIT Hospitalist; ATTEND Hospitalist